=== PATIENT | female | born 2005 | race Caucasian/White ===

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

== ENCOUNTER 2024-04-06 13:49 | Emergency (ER) | payer OTHER, SELFPAY ==
[2024-04-06 14:05] VITALS: BP 130/78; PULSE 103; RESP 16; TEMP 37.1; O2SAT 98; BMI 20.4
[2024-04-06 14:07] VITALS: BP 130/78; PULSE 103; RESP 16; TEMP 37.1; O2SAT 98
--- NOTE | 2024-04-06 14:16 | ED_ITS ---
HPI - Female Genitourinary General Chief complaint: Urogenital-Female Stated complaint: vaginal discomfort Time Seen by Provider: 04/06/24 14:15 Source: patient Mode of arrival: ambulatory Limitations: no limitations History of Present Illness ED Provider: oneida STOREY Narrative: Patient is a 18-year-old female presenting to the emergency department with complaint of thick, white vaginal discharge since yesterday after having unprotected intercourse. Complains of external genetalia feeling swollen while urinating. She is not on control, unsure of last menstrual period. Denies fevers, abdominal pain, back pain, nausea or vomiting. MD elicited complaint: vaginal discharge Onset (ago): day(s) Location of symptoms: vaginal Vaginal discharge: white and thick/cheesy Vaginal bleeding: none Associated symptoms: denies other symptoms Treatment prior to arrival: none Sexual activity: Yes Possible : unsure if Related Data Previous Rx's ?Medication ?Instructions ?Recorded amoxicillin 875 mg tablet 875 mg PO BID Bacterial 12/10/21 pharyngitis 10 days #20 tabs cefdinir 300 mg capsule 300 mg PO BID 7 days #14 caps 02/27/23 doxycycline hyclate 100 mg tablet 100 mg PO BID 7 days #14 tabs 02/27/23 fluconazole 150 mg tablet 150 mg PO Q3D 2 doses #2 tabs 02/27/23 (Diflucan) metronidazole 500 mg tablet 500 mg PO BID 7 days #14 tabs 02/27/23 miconazole nitrate 4 % (200 mg)-2 1 supp vaginal BEDTIME 3 days #24 04/06/24 % (9 gram)vaginal,prefill grams appl,cream Allergies Allergy/AdvReac Type Severity Reaction Status Date / Time No Known Allergies Allergy Verified 04/06/24 14:06 [No Known Allergies*] Review of Systems Review of Systems: As per HPI. Yes all other systems are reviewed and are negative Constitutional: Constitutional: Reports as per HPI [facility] Past Medical History Medical History No known health problems Social History Social History Advance Directives: No Advance Directives Information Provided: No Do you have a plan to hurt others: No Plan Physical Exam Vital Signs: Vital Signs: Last Vital Signs Temp 98.8 F 04/06/24 16:26 Pulse 71 04/06/24 16:26 Resp 16 04/06/24 16:26 BP 109/62 04/06/24 16:26 Pulse Ox 100 04/06/24 16:26 O2 Del Method Room Air 04/06/24 16:26 BMI result Body Mass Index 20.4 Vital signs have been reviewed and appear to be correct. Blood pressure normal. Heart rate slightly tachycardic. Respiratory rate normal. Temperature normal. Oxygen saturation normal. Const: General: cooperative, healthy appearing and no acute distress Orientation/consciousness: oriented to person, oriented to place, oriented to time and patient oriented x3 Limitations: no limitations HEENT: Head: Yes normocephalic and Yes atraumatic Ears: external ears normal General nose exam: Normal external nose present Face and sinus: Yes face symmetric Mouth: oropharynx normal and moist mucous membranes Throat: Yes uvula midline Eyes: Pupils: Equal, round and reactive pupils present Neck: Neck: Yes normal visual inspection and Yes supple Resp: Effort & Inspection: normal respiratory effort and able to speak in complete sentences Auscultation: clear to auscultation bilaterally Cardio: Rate: regular rate Rhythm: regular rhythm Heart sounds: S1 normal heart sound present and S2 normal heart sound present GI: Palpation (GI): Soft to palpation and nontender Auscultation: normoactive bowel sounds : Other: Pelvic exam chaperoned by ELIZABETH Miller and ELIZABETH Mas. General: Yes no CVA tenderness External Female Exam: normal external appearance Speculum Exam - Vagina: normal appearance of the vagina and abnormal vaginal discharge white (thick) Speculum Exam - Cervix: normal appearance of the cervix and Cervical os closed Back/Spine/Pelvis: Back: no CVA tenderness Skin: General skin exam: elasticity normal and turgor normal Neuro: General: oriented to person, oriented to place, oriented to time, patient oriented x3, moves all extremities, no focal motor deficits and CN's II- XI intact bilaterally Cranial nerves: Yes Equal, round and reactive pupils present Cognition (Neuro): normal cognition Extrem: General: Yes full ROM, Yes no pedal edema and Yes no calf tenderness Psych: Mental Status: mental status grossly normal Affect: normal affect Thought process: Normal thought process present Medical Decision Making Medical Decision Making MDM Narrative: Patient is a 18-year-old female presenting to the emergency department with complaint of thick, white vaginal discharge since yesterday after having unprotected intercourse. On exam patient is awake, A+Ox3, VS WNL, afebrile, normal neurological exam without focal deficits, physical exam findings as above. Given reported symptoms and physical exam findings, initial differential includes STI, UTI, . Trichomonas negative, duarte positive 3+. Will treat for vulvovaginal candidiasis. CT NG, HIV, RPR pending, patient will be contacte with any positive results, will defer treatment at this time as symptoms most consistent with vulvovaginal candidiasis. Urinalysis notable for 1+ leukocytes, no bacteria, 11-20 epithelials likely contamination. Patient updated on results and questions answered. Discussed with patient that she will be contacted with any positive results. Return precautions discussed at bedside. Patient verbalized understanding of and agreement with plan. Differential Diagnosis Differential Diagnoses: The differential diagnosis associated with the presentation includes As per MDM. Lab Data [facility] Lab Attestation statement: I reviewed the patient's lab results. As per MDM. Labs: Lab Results 04/06/24 04/06/24 Range/Units 14:42 15:05 Urine Color Yellow Urine Appearance Cloudy Urine pH 5.5 (5.0-9.0) Ur Specific Pillager >= 1.030 H (1.005-1.025) Urine Protein 30 (1+) H (Neg-Trace) mg/dL Urine Glucose (UA) Negative (Negative) mg/dL Urine Ketones Trace (Negative) mg/dL Urine Blood Negative (Negative) Urine Nitrite Negative (Negative) Ur Leukocyte Esterase Small (1+) H (Negative) Urine RBC 0-2 (0-2) /HPF Urine WBC 6-10 H (0-5) /HPF Ur Squamous Epith Cells 11-20 (0-2) /HPF Urine Bacteria None Seen (None Seen) Hyaline Casts 3-5 (0-2) /LPF Urine Test NEGATIVE (NEGATIVE) T. vaginalis (PCR) NOT DETECTED (Not Detect) Bact Vaginosis (PCR) NEGATIVE (Negative) C. krusei/glabrata (PCR) NOT DETECTED (Not Detect) Duarte group (PCR) DETECTED A (Not Detect) External Record Review External record reviewed: Inpatient record, Office record and Outpatient record Prescription Management I considered prescription management with: Other Discharge Plan Discharge Clinical Impression: Vulvovaginal candidiasis Patient Disposition: Home, Self-Care Instructions: Yeast Infection (ED) Additional Instructions: You were evaluated in the emergency department today for abnormal vaginal discharge. Your tests were positive for vulvovaginal candidiasis, also known as yeast infection. You are being treated with medication, please take this as prescribed. Several other tests are pending and you will be contacted with any positive results. Follow-up with your electronics inspector or primary care provider. Return to the emergency department if you develop fever, abdominal pain, persistent vo miting, or other concerning symptoms. Prescriptions: New miconazole nitrate 4 % (200 mg)- 2 % (9 gram) comb pack,prefill appl, cream 1 supp vaginal BEDTIME 3 Days Qty: 24 0RF No Action amoxicillin 875 mg tablet 875 mg PO BID 10 Days Qty: 20 0RF metronidazole 500 mg tablet 500 mg PO BID 7 Days Qty: 14 0RF cefdinir 300 mg capsule 300 mg PO BID 7 Days Qty: 14 0RF doxycycline hyclate 100 mg tablet 100 mg PO BID 7 Days Qty: 14 0RF fluconazole [Diflucan] 150 mg tablet 150 mg PO Q3D Qty: 2 0RF Print Language: Liberian
[2024-04-06 15:15] LABS: Appearance Urine Cloudy; Color Urine Yellow; Glucose Urine UA Negative (Negative); Leukocyte Esterase Urine Small (1+) (Negative); Nitrite Urine Negative (Negative); PH 5.5 (5.0-9.0); Specific Gravity - Urine >= 1.030 (1.005-1.025); UMIC TRIGGER UACC YES; Urine Blood Negative (Negative); Urine Ketones Trace mg/dL (Negative); Urine Protein 30 (1+) mg/dL (Neg-Trace)
[2024-04-06 15:17] LABS: UPreg QC Valid YES; Urine Pregnancy NEGATIVE (NEGATIVE)
[2024-04-06 15:30] LABS: Bacteria Urine None Seen (None Seen); RBC Urine 0-2 /HPF (0-2); UACC Culture Trigger YES
[2024-04-06 16:26] VITALS: BP 109/62; PULSE 71; RESP 16; TEMP 37.1; O2SAT 100
[2024-04-06 16:30] LABS: Bacterial Vaginosis PCR NEGATIVE (Negative); Candida Group PCR DETECTED (Not Detect); Candida glab krusei PCR NOT DETECTED (Not Detect); Trichomonas vaginalis PCR NOT DETECTED (Not Detect)
[2024-04-06 16:47] VITALS: BP 109/62; PULSE 71; RESP 16; TEMP 37.1; O2SAT 100
[2024-04-06 17:01] LABS: CT PCR NOT DETECTED (Not Detect.); NG PCR NOT DETECTED (Not Detect.)
[2024-04-07 08:11] LABS: HIV AB/AG Nonreactive (Nonreactive); HIV Num 1 0.05 S/CO (0.00-0.99)
[2024-04-07 08:15] LABS: Syphilis Screen Nonreactive (Nonreactive)
== END 2024-04-06 16:49 | disposition home or self-care (01) ==
PROVIDERS: Registered Nurse Emergency; Emergency Provider Emergency Medicine
DX: B37.31 Acute candidiasis of vulva and vagina (principal); N89.8 Other specified noninflammatory disorders of vagina
CPT/HCPCS: 0352U; 36415; 81001; 81025; 86780; 87086; 87389; 87491; 87591; 99283; 99284

== ENCOUNTER 2024-05-08 11:33 | Emergency (ER) | payer OTHER, SELFPAY ==
[2024-05-08 11:42] VITALS: BP 106/62; PULSE 74; RESP 14; TEMP 36.8; O2SAT 100; BMI 22.2
--- NOTE | 2024-05-08 11:42 | ED.GENADULT ---
HPI - General Adult General Chief complaint: Skin/Abscess/Foreign Body Stated complaint: Cyst Time Seen by Provider: 05/08/24 13:21 Related Data Previous Rx's ?Medication ?Instructions ?Recorded amoxicillin 875 mg tablet 875 mg PO BID Bacterial 12/10/21 pharyngitis 10 days #20 tabs cefdinir 300 mg capsule 300 mg PO BID 7 days #14 caps 02/27/23 doxycycline hyclate 100 mg tablet 100 mg PO BID 7 days #14 tabs 02/27/23 fluconazole 150 mg tablet 150 mg PO Q3D 2 doses #2 tabs 02/27/23 (Diflucan) metronidazole 500 mg tablet 500 mg PO BID 7 days #14 tabs 02/27/23 miconazole nitrate 4 % (200 mg)-2 1 supp vaginal BEDTIME 3 days #24 04/06/24 % (9 gram)vaginal,prefill grams appl,cream cephalexin 500 mg capsule 500 mg PO QID 7 days #28 caps 05/08/24 doxycycline hyclate 100 mg capsule 100 mg PO BID 7 days #14 caps 05/08/24 Allergies Allergy/AdvReac Type Severity Reaction Status Date / Time No Known Allergies Allergy Verified 05/08/24 11:43 [No Known Allergies*] ON LICENSE OF [facility] Past Medical History Medical History No known health problems Social History Social History Advance Directives: No Advance Directives Information Provided: Yes Physical Exam ED Vital Signs: Vital Signs - 24 hr 05/08/24 11:42 05/08/24 14:38 05/08/24 14:39 Temperature 98.2 F 98.9 F 98.9 F Pulse Rate 74 85 85 Respiratory Rate 14 20 20 Blood Pressure 106/62 115/62 115/62 Pulse Oximetry 100 98 98 Oxygen Delivery Method Room Air Room Air Room Air BMI result Body Mass Index 22.2 Course Course Course Narrative: RME performed by Angella Saenz PA-C. Patient is a 18 year old assigned female at presenting to the emergency department with a vaginal abscess. Patient states that yesterday she noticed a hard swollen area on her genitals. Detailed physical exam and review of systems are deferred to the orthotic/prosthetic clinician. Patient placed back in the waiting room pending room availability. Patient seen and dispositioned by Dr. Cortes. Please refer to his note from 05/08/2024 Medical Decision Making Lab Data Labs: Lab Results 05/08/24 Range/Units 14:13 T.pallidum Ab (EIA) Nonreactive (Nonreactive) Chlam trachomat DNA PCR NOT DETECTED (Not Detect.) N.gonorrhoeae DNA (PCR) NOT DETECTED (Not Detect.) T. vaginalis (PCR) NOT DETECTED (Not Detect) Bact Vaginosis (PCR) POSITIVE A (Negative) C. krusei/glabrata (PCR) NOT DETECTED (Not Detect) Felicity group (PCR) NOT DETECTED (Not Detect) Discharge Plan Discharge Clinical Impression: Carbuncle, Abscess of skin or subcutaneous tissue Patient Disposition: Home, Self-Care Instructions: Furunculosis and Carbunculosis (ED), Abscess (ED) Additional Instructions: Presently no indication for incision and drainage. You will be called with results. Recommend warm compress 4 times a day for 15 minutes on area. Return to the ED immediately for any fever, chills, increased swelling, worsening pain, redness, pus discharge, foul odor, or any other concerning symptoms. Recommend follow-up with primary care provider Prescriptions: New cephalexin 500 mg capsule 500 mg PO QID 7 Days Qty: 28 0RF doxycycline hyclate 100 mg capsule 100 mg PO BID 7 Days Qty: 14 0RF No Action amoxicillin 875 mg tablet 875 mg PO BID 10 Days Qty: 20 0RF metronidazole 500 mg tablet 500 mg PO BID 7 Days Qty: 14 0RF cefdinir 300 mg capsule 300 mg PO BID 7 Days Qty: 14 0RF doxycycline hyclate 100 mg tablet 100 mg PO BID 7 Days Qty: 14 0RF fluconazole [Diflucan] 150 mg tablet 150 mg PO Q3D Qty: 2 0RF miconazole nitrate 4 % (200 mg)- 2 % (9 gram) comb pack,prefill appl, cream 1 supp vaginal BEDTIME 3 Days Qty: 24 0RF Stand Alone Forms: Work/School Release Interventions: ED Discharge Assessment Last Done: 05/08/24 14:39 Discharge Date/Time: 05/08/24 14:39 Print Language: St Helenian
--- NOTE | 2024-05-08 13:31 | ED.GENADULT ---
HPI - General Adult General Chief complaint: Skin/Abscess/Foreign Body Stated complaint: Cyst Time Seen by Provider: 05/08/24 13:21 Source: patient Mode of arrival: ambulatory Limitations: no limitations History of Present Illness ED Provider: Sarthak RIVERA HPI narrative: 18-year-old female history of STI in the past presents to ED for left vaginal labial bump that is tender has been present since yesterday. Patient denies any fever or chills. Related Data Previous Rx's ?Medication ?Instructions ?Recorded amoxicillin 875 mg tablet 875 mg PO BID Bacterial 12/10/21 pharyngitis 10 days #20 tabs cefdinir 300 mg capsule 300 mg PO BID 7 days #14 caps 02/27/23 doxycycline hyclate 100 mg tablet 100 mg PO BID 7 days #14 tabs 02/27/23 fluconazole 150 mg tablet 150 mg PO Q3D 2 doses #2 tabs 02/27/23 (Diflucan) metronidazole 500 mg tablet 500 mg PO BID 7 days #14 tabs 02/27/23 miconazole nitrate 4 % (200 mg)-2 1 supp vaginal BEDTIME 3 days #24 04/06/24 % (9 gram)vaginal,prefill grams appl,cream cephalexin 500 mg capsule 500 mg PO QID 7 days #28 caps 05/08/24 doxycycline hyclate 100 mg capsule 100 mg PO BID 7 days #14 caps 05/08/24 Allergies Allergy/AdvReac Type Severity Reaction Status Date / Time No Known Allergies Allergy Verified 05/08/24 11:43 [No Known Allergies*] Review of Systems Review of Systems: left labia lubmp Yes all other systems are reviewed and are negative [facility] Past Medical History Medical History No known health problems Social History Social History Advance Directives: No Advance Directives Information Provided: Yes Physical Exam ED Vital Signs: Vital Signs - 24 hr 05/08/24 11:42 05/08/24 14:38 05/08/24 14:39 Temperature 98.2 F 98.9 F 98.9 F Pulse Rate 74 85 85 Respiratory Rate 14 20 20 Blood Pressure 106/62 115/62 115/62 Pulse Oximetry 100 98 98 Oxygen Delivery Method Room Air Room Air Room Air BMI result Body Mass Index 22.2 Const General: cooperative, healthy appearing, comfortable, no acute distress, well developed, alert, awake and Physically active Orientation/consciousness: patient oriented x3 [facility] Head: Yes normal to inspection, Yes No palpable skull fracture present, Yes normocephalic, Yes atraumatic and No abrasion Eyes General: appearance normal, both eyes and all related structures Neck Neck: Yes normal visual inspection, Yes full ROM, Yes no lymphadenopathy, Yes no meningeal signs, Yes trachea midline, Yes supple, No anterior neck swelling and No tender Chest Chest palpation & inspection: normal inspection of the chest and normal palpation of entire chest wall Resp Effort & Inspection: normal respiratory effort and able to speak in complete sentences Auscultation: clear to auscultation bilaterally Cardio Jugular venous distension: no JVD Heart sounds: S1 normal heart sound present and S2 normal heart sound present GI Inspection: Yes normal to inspection Palpation (GI): Soft to palpation, not firm, nontender, no guarding and not rigid General: No CVA tenderness and Yes no CVA tenderness Female genitals images: 1. Non erythematous tender mass/carbuncle/folliculitis. Nonfluctuant on palpation. Negative for vesicular lesions. Negative for any vaginal discharge. Negative for swelling. Back/Spine/Pelvis Back: no CVA tenderness, No CVA tenderness and No back tenderness Skin General skin exam: no rashes or lesions noted, elasticity normal and turgor normal Neuro General: patient oriented x3, gait normal, tone normal, moves all extremities, Normal light touch and pain sensation, no meningeal signs, no focal motor deficits, CN's II-XI intact bilaterally and normal sensation to monofilament Extrem General: Yes normal to inspection, Yes full ROM and Yes capillary refill normal Psych Appearance: grossly normal, well kempt and not disheveled Medical Decision Making Medical Decision Making MDM Narrative: 18-year-old female presents to ED for left labia painful lump. Patient has pmh of STI in the past. Vaginal lesion does not appear to be herpes but will send herpes viral swab. We will order RPR test for syphilis. Patient says she prefers to self swab for chlamydia gonorrhea trich and vaginal vaginosis. Patient explained worrisome signs and informed to return to the ED immediately. Not suspecting Bartholin cyst,, herpes, HPV warts, tubo-ovarian torsion, tubo-ovarian abscess, for PID Differential Diagnosis Differential Diagnoses: The differential diagnosis associated with the presentation includes (Abscess, carbuncle, folliculitis) Admission/Observation Consideration of admission/observation: Escalation of care including admission/observation considered Lab Data Labs: Lab Results 05/08/24 Range/Units 14:13 Chlam trachomat DNA PCR NOT DETECTED (Not Detect.) N.gonorrhoeae DNA (PCR) NOT DETECTED (Not Detect.) T. vaginalis (PCR) NOT DETECTED (Not Detect) Bact Vaginosis (PCR) POSITIVE A (Negative) C. krusei/glabrata (PCR) NOT DETECTED (Not Detect) Felicity group (PCR) NOT DETECTED (Not Detect) Independent Historian Clinical information obtained from an independent historian. History obtained from or confirmed by: Other (Patient) External Record Review External record reviewed: Other (Prior visits) Prescription Management I considered prescription management with: Other (Keflex) Discharge Plan Discharge Clinical Impression: Carbuncle, Abscess of skin or subcutaneous tissue Patient Disposition: Home, Self-Care Instructions: Furunculosis and Carbunculosis (ED), Abscess (ED) Additional Instructions: Presently no indication for incision and drainage. You will be called with results. Recommend warm compress 4 times a day for 15 minutes on area. Return to the ED immediately for any fever, chills, increased swelling, worsening pain, redness, pus discharge, foul odor, or any other concerning symptoms. Recommend follow-up with primary care provider Prescriptions: New cephalexin 500 mg capsule 500 mg PO QID 7 Days Qty: 28 0RF doxycycline hyclate 100 mg capsule 100 mg PO BID 7 Days Qty: 14 0RF No Action amoxicillin 875 mg tablet 875 mg PO BID 10 Days Qty: 20 0RF metronidazole 500 mg tablet 500 mg PO BID 7 Days Qty: 14 0RF cefdinir 300 mg capsule 300 mg PO BID 7 Days Qty: 14 0RF doxycycline hyclate 100 mg tablet 100 mg PO BID 7 Days Qty: 14 0RF fluconazole [Diflucan] 150 mg tablet 150 mg PO Q3D Qty: 2 0RF miconazole nitrate 4 % (200 mg)- 2 % (9 gram) comb pack,prefill appl, cream 1 supp vaginal BEDTIME 3 Days Qty: 24 0RF Stand Alone Forms: Work/School Release Interventions: ED Discharge Assessment Last Done: 05/08/24 14:39 Discharge Date/Time: 05/08/24 14:39 Print Language: Swedish
[2024-05-08 14:38] VITALS: BP 115/62; PULSE 85; RESP 20; TEMP 37.2; O2SAT 98
[2024-05-08 14:39] VITALS: BP 115/62; PULSE 85; RESP 20; TEMP 37.2; O2SAT 98
[2024-05-08 15:55] LABS: Bacterial Vaginosis PCR POSITIVE (Negative); Candida Group PCR NOT DETECTED (Not Detect); Candida glab krusei PCR NOT DETECTED (Not Detect); Trichomonas vaginalis PCR NOT DETECTED (Not Detect)
[2024-05-08 16:25] LABS: CT PCR NOT DETECTED (Not Detect.); NG PCR NOT DETECTED (Not Detect.)
[2024-05-09 04:10] LABS: Syphilis Screen Nonreactive (Nonreactive)
== END 2024-05-08 14:39 | disposition home or self-care (01) ==
PROVIDERS: Physician Assistant; Emergency Provider Emergency Medicine
DX: N76.0 Acute vaginitis (principal); N76.4 Abscess of vulva; B96.89 Other specified bacterial agents as the cause of diseases classified elsewhere
CPT/HCPCS: 0352U; 36415; 86780; 87255; 87491; 87591; 99283; 99284

== ENCOUNTER 2024-05-25 09:38 | Emergency (ER) | payer OTHER, SELFPAY ==
[2024-05-25 10:06] VITALS: BP 102/48; PULSE 75; RESP 14; TEMP 36.6; O2SAT 99; BMI 21.2
--- NOTE | 2024-05-25 11:48 | ED.FEMALEGU ---
HPI - Female Genitourinary General Chief complaint: Urogenital-Female Stated complaint: Vaginal irritation Time Seen by Provider: 05/25/24 11:37 Source: patient Mode of arrival: ambulatory Limitations: no limitations History of Present Illness ED Provider: Sarthak Lomax HPI Narrative: 18 yold female recently diagnosed as BV presents to the ED for worsening vaginal itchiness and white discharge. Patient was prescribed metronidazole for her BV but she was overwhelm with the amount of pills so she only took three pills and than threw the rest away and did not finish treatment. Patient states no recent sexual activity and denies any vaginal lesions. Related Data Previous Rx's ?Medication ?Instructions ?Recorded amoxicillin 875 mg tablet 875 mg PO BID Bacterial 12/10/21 pharyngitis 10 days #20 tabs cefdinir 300 mg capsule 300 mg PO BID 7 days #14 caps 02/27/23 doxycycline hyclate 100 mg tablet 100 mg PO BID 7 days #14 tabs 02/27/23 fluconazole 150 mg tablet 150 mg PO Q3D 2 doses #2 tabs 02/27/23 (Diflucan) metronidazole 500 mg tablet 500 mg PO BID 7 days #14 tabs 02/27/23 miconazole nitrate 4 % (200 mg)-2 1 supp vaginal BEDTIME 3 days #24 04/06/24 % (9 gram)vaginal,prefill grams appl,cream cephalexin 500 mg capsule 500 mg PO QID 7 days #28 caps 05/08/24 doxycycline hyclate 100 mg capsule 100 mg PO BID 7 days #14 caps 05/08/24 metronidazole 500 mg tablet 500 mg PO BID 7 days #14 tabs 05/10/24 levofloxacin 250 mg tablet 250 mg PO DAILY 3 days #3 tabs 05/25/24 metronidazole 500 mg tablet 500 mg PO Q12H 7 days #14 tabs 05/25/24 Allergies Allergy/AdvReac Type Severity Reaction Status Date / Time No Known Allergies Allergy Verified 05/25/24 10:09 [No Known Allergies*] Review of Systems Review of Systems: Vaginal itching white vaginal discharge Yes all other systems are reviewed and are negative PMFSH Past Medical History Medical History No known health problems Social History Social History Advance Directives: No Advance Directives Information Provided: Yes Physical Exam Vital Signs: Vital Signs: Last Vital Signs Temp 97.9 F 05/25/24 13:51 Pulse 75 05/25/24 13:51 Resp 14 05/25/24 13:51 BP 102/48 L 05/25/24 13:51 Pulse Ox 99 05/25/24 13:51 O2 Del Method Room Air 05/25/24 13:51 BMI result Body Mass Index 21.2 Const: General: cooperative, healthy appearing, comfortable, no acute distress, well developed, alert, awake and Physically active HEENT: Head: Yes normal to inspection, Yes No palpable skull fracture present, Yes normocephalic, Yes atraumatic and No abrasion Eyes: General: appearance normal, both eyes and all related structures Neck: Neck: Yes normal visual inspection, Yes full ROM, Yes no lymphadenopathy, Yes no meningeal signs, Yes trachea midline, Yes supple, No anterior neck swelling and No tender Chest: Chest palpation & inspection: normal inspection of the chest and normal palpation of entire chest wall Resp: Effort & Inspection: normal respiratory effort and able to speak in complete sentences Cardio: Jugular venous distension: no JVD Heart sounds: S1 normal heart sound present and S2 normal heart sound present GI: Inspection: Yes normal to inspection Palpation (GI): Soft to palpation, not firm, nontender, no guarding and not rigid : Other: deferred by patient General: No CVA tenderness and Yes no CVA tenderness Back/Spine/Pelvis: Back: no CVA tenderness, No CVA tenderness and No back tenderness Skin: General skin exam: no rashes or lesions noted, elasticity normal and turgor normal Neuro: General: gait normal, tone normal, moves all extremities, Normal light touch and pain sensation, no meningeal signs, no focal motor deficits, CN's II-XI intact bilaterally and normal sensation to monofilament Extrem: General: Yes normal to inspection, Yes full ROM and Yes capillary refill normal Psych: Appearance: grossly normal, well kempt and not disheveled Medications Administered Discontinued Medications Generic Name Dose Route Start Last Admin Trade Name Freq PRN Reason Stop Dose Admin Fluconazole 150 mg 05/25/24 13:23 05/25/24 13:36 Fluconazole 150 Mg Tablet PO 05/25/24 13:24 150 mg ONCE ONE Administration Medical Decision Making Medical Decision Making MDM Narrative: 18-year-old female presents to ED for worsening vaginal itching vaginal white discharge. Patient did not complete her treatment for BV and threw away her metronidazole prescription. Patient deferred pelvic exam. Patient does not want retesting of chlamydia gonorrhea. Patient will wait for urine test be prescribed with new metronidazole prescription. Patient well-appearing. 1:18pm: UA shows shows yeast. Will give 1 dose Diflucan. Will discharge with metronidazole for untreated BV. will discharge with antiobics for UTI. Not suspecting pyelonephritis, urosepsis, ovarian torsion, or ovarian abscess. Patient refused pelvic exam and refused repeat swabs. Patient explained worrisome signs and informed to return to the ED immediately. Due to patient's stay not able to tolerate multiple different type antibiotics at once will give Levaquin to treat UTI for 3 days. Patient explained risk of tendon rupture with Levaquin. Differential Diagnosis Differential Diagnoses: The differential diagnosis associated with the presentation includes (yeast, BV, UTI, ) Admission/Observation Consideration of admission/observation: Escalation of care including admission/observation considered Lab Data MDM Lab Attestation statement: I reviewed the patient's lab results. Labs: Lab Results 05/25/24 05/25/24 Range/Units 10:33 12:28 Urine Color Yellow Urine Appearance Cloudy Urine pH 8.5 (5.0-9.0) Ur Specific [place] 1.015 (1.005-1.025) Urine Protein Negative (Neg-Trace) mg/dL Urine Glucose (UA) Negative (Negative) mg/dL Urine Ketones Negative (Negative) mg/dL Urine Blood Trace H (Negative) Urine Nitrite Negative (Negative) Ur Leukocyte Esterase Large (3+) H (Negative) Urine RBC 0-2 (0-2) /HPF Urine WBC >50 H (0-5) /HPF Ur Squamous Epith Cells >20 (0-2) /HPF Urine Bacteria 1+ (None Seen) Hyaline Casts 3-5 (0-2) /LPF Urine Yeast Present Urine Test NEGATIVE (NEGATIVE) Chlam trachomat DNA PCR NOT DETECTED (Not Detect.) N.gonorrhoeae DNA (PCR) NOT DETECTED (Not Detect.) Independent Historian Clinical information obtained from an independent historian. History obtained from or confirmed by: Other (patient) External Record Review External record reviewed: Other (prior visits) Prescription Management I considered prescription management with: Antibiotic Discharge Plan Discharge Clinical Impression: Urinary tract infection, Bacterial vaginosis, Yeast infection Patient Disposition: Home, Self-Care Instructions: Bacterial Vaginosis (ED), Urinary Tract Infection in Women (ED), Yeast Infection (ED) Additional Instructions: You will be given another prescription to treat bacterial vaginosis. Must complete treatment for symptoms to resolve. Urine also showed yeast so you were given 1 dose of Diflucan in the ED. UA shows possible UTI so you will be discharged with Levaquin which is antibiotic for 3 days. Be aware of possible tendon rupture. No athletic activities while taking this medication. Recommend follow-up with primary care provider. Return to the ED immediately for any abdominal pain, worsening vaginal discharge, vaginal lesions, fever, chills, nausea, vomitting, flank pain, or any other concerning symptoms. Prescriptions: New metronidazole 500 mg tablet 500 mg PO Q12H 7 Days Qty: 14 0RF levofloxacin 250 mg tablet 250 mg PO DAILY 3 Days Qty: 3 0RF No Action amoxicillin 875 mg tablet 875 mg PO BID 10 Days Qty: 20 0RF metronidazole 500 mg tablet 500 mg PO BID 7 Days Qty: 14 0RF cefdinir 300 mg capsule 300 mg PO BID 7 Days Qty: 14 0RF doxycycline hyclate 100 mg tablet 100 mg PO BID 7 Days Qty: 14 0RF fluconazole [Diflucan] 150 mg tablet 150 mg PO Q3D Qty: 2 0RF miconazole nitrate 4 % (200 mg)- 2 % (9 gram) comb pack,prefill appl, cream 1 supp vaginal BEDTIME 3 Days Qty: 24 0RF cephalexin 500 mg capsule 500 mg PO QID 7 Days Qty: 28 0RF doxycycline hyclate 100 mg capsule 100 mg PO BID 7 Days Qty: 14 0RF metronidazole 500 mg tablet 500 mg PO BID 7 Days Qty: 14 0RF Stand Alone Forms: Work/School Release Interventions: ED Discharge Assessment Last Done: 05/25/24 13:51 Discharge Date/Time: 05/25/24 13:52 Print Language: Danish
[2024-05-25 12:21] LABS: CT PCR NOT DETECTED (Not Detect.); NG PCR NOT DETECTED (Not Detect.)
[2024-05-25 12:37] LABS: Appearance Urine Cloudy; Color Urine Yellow; Glucose Urine UA Negative (Negative); Leukocyte Esterase Urine Large (3+) (Negative); Nitrite Urine Negative (Negative); PH 8.5 (5.0-9.0); Specific Gravity - Urine 1.015 (1.005-1.025); UMIC TRIGGER UACC YES; Urine Blood Trace (Negative); Urine Ketones Negative (Negative); Urine Protein Negative (Neg-Trace)
[2024-05-25 12:39] LABS: UPreg QC Valid YES; Urine Pregnancy NEGATIVE (NEGATIVE)
[2024-05-25 12:49] LABS: Bacteria Urine 1+ (None Seen); RBC Urine 0-2 /HPF (0-2); Squamous Epithelial Cell Urine >20 /HPF (0-2); UACC Culture Trigger YES; WBC Urine >50 /HPF (0-5)
[2024-05-25] MEDS: Fluconazole 150 MG TABLET PO (13:36)
[2024-05-25 13:51] VITALS: BP 102/48; PULSE 75; RESP 14; TEMP 36.6; O2SAT 99
== END 2024-05-25 13:52 | disposition home or self-care (01) ==
PROVIDERS: Emergency Provider Emergency Medicine
DX: N39.0 Urinary tract infection, site not specified (principal); N76.0 Acute vaginitis; B37.31 Acute candidiasis of vulva and vagina
CPT/HCPCS: 81001; 81025; 87086; 87491; 87591; 99282; 99283

== ENCOUNTER 2025-01-26 16:19 | Emergency (ER) | payer OTHER, SELFPAY ==
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
[2025-01-26 16:30] VITALS: BP 124/66; PULSE 107; O2SAT 99
[2025-01-26 16:33] VITALS: BP 119/72; PULSE 88; RESP 18; TEMP 36.9; O2SAT 100
[2025-01-26 16:36] VITALS: BP 119/72; PULSE 82; RESP 16; TEMP 36.8; O2SAT 100; BMI 19.1
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
--- NOTE | 2025-01-26 16:54 | PC.NURSE ---
Observed patient removing C-collar. Provider at bedside educating patient on risk of removing C-collar prematurely.
--- NOTE | 2025-01-26 18:11 | PC.NURSE ---
Pt. has yet to go to CT for head/neck, per radiology she should be scanned in the next 20 minutes. car body mechanic Bella / CHATO Khan aware of delay
[2025-01-26] MEDS: Acetaminophen 325 MG TABLET 650 MG PO (18:21)
--- NOTE | 2025-01-26 18:28 | PC.NURSE ---
pt taken to CT scan
--- NOTE | 2025-01-26 18:35 | PC.NURSE ---
pt returned from CT c-collar still in place
[2025-01-26 18:37] VITALS: BP 112/74; PULSE 63; RESP 18; O2SAT 100
--- OUTSIDE RECORDS SUMMARY | 2025-01-26 19:53 | XMS_ITS | Encounter Summary ---
Author Organization [facility] Address [address] [place] [address] Care Team Providers Care Hand Polisher Name Role Phone Marbin Toussaitn MD Primary Care Provider [phone] Reason for Visit * Reason Onset Date Comments Letter for School/Work 12/22/2024 Encounter Details Date Type Department Care Team ([facility] Contact Info) Description 12/22/2024 Telephone Adult Medicine [facility] [address] [place] [address] Marbin Toussaint MD [address] [place], [place] Letter for School/Work Social History Tobacco Use Types Packs/Day Years Used Date Smoking Tobacco: Never Smokeless Tobacco: Never Alcohol Use Standard Drinks/Week Comments Not Asked 0 (1 standard drink = 0.6 oz pur e alcohol) Comments Unknown Sex and Gender Information Value Date Recorded Sex Assigned at Not on file Legal Sex Female 6:50 AM EST Gender Identity Not on file Sexual Orientation Not on file documented as of this encounter Progress Notes * Ismael Fortune MA - 12/23/2024 8:46 AM EDT Pt needs an appointment . Left message for pt to return call. * Hernandez Andino - 12/22/2024 12:55 PM EDT Letter Request Call: Who is requesting the letter?: The patient Reason for letter: The patient is requesting a letter to state that she is physical fit to work. Specific notations needed in body of letter: Date needed for completion: TAI When completed: Will pickle cutter-call when completed: Tel # There is no home phone number on file. Possibly need a physical scheduled with and provider due to employment purposes. documented in this encounter Plan of Treatment Not on file documented as of this encounter Visit Diagnoses Not on filedocumented in this encounter Care Teams Hand Polisher Relationship Specialty Start Date End Date Marbin Toussaint MD [address] [place] [address] PCP - General Internal Medicine 11/30/24 documented as of this encounter
[2025-01-26 20:25] VITALS: BP 101/60; PULSE 73; RESP 16; O2SAT 98
--- NOTE | 2025-01-26 20:26 | PC.NURSE ---
Pt getting increasingly agitated, threating I should just go to [facility], ya'll ain't doing nothing here for me. Explained to patient we are still awaiting head CT results. Provider Dario made aware by Fiorella BARCLAY & T/Naheed. Messaged Dario about patient's back pain, awaiting additional orders.
[2025-01-26] MEDS: Ibuprofen 400 MG TABLET PO (20:42)
[2025-01-26 20:43] VITALS: BP 101/60; PULSE 73; RESP 16; TEMP 36.9; O2SAT 98
== END 2025-01-26 20:44 | disposition home or self-care (01) ==
PROVIDERS: Emergency Provider Internal Medicine
DX: S13.4XXA Sprain of ligaments of cervical spine, initial encounter (principal); M54.2 Cervicalgia; R51.9 Headache, unspecified; V43.52XA Car driver injured in collision with other type car in traffic accident, initial encounter; Y93.9 Activity, unspecified; Y92.410 Unspecified street and highway as the place of occurrence of the external cause; Y99.8 Other external cause status
CPT/HCPCS: 70450; 72125; 99284

== ENCOUNTER → 2025-01-26 16:49 | Outpatient (BNV) | payer MEDICAID, SELFPAY | PROVIDERS: Emergency Provider Internal Medicine; Visit Provider Specialist | DX: G89.11 Acute pain due to trauma (principal); G44.309 Post-traumatic headache, unspecified, not intractable | CPT/HCPCS: 70450; 72125 ==

== ENCOUNTER 2025-02-01 10:14 | Emergency (ER) | payer OTHER, SELFPAY ==
[2025-02-01 10:20] VITALS: BP 109/64; PULSE 70; RESP 16; TEMP 36.5; O2SAT 99; BMI 17.7
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
--- OUTSIDE RECORDS SUMMARY | 2025-02-01 12:01 | XMS_ITS | Clinical Summary ---
Author Organization [facility] it Address [address] [place] [address] Care Team Providers Care Hr Receptionist Name Role Phone Marbin Toussaint MD Primary Care Provider Allergies No known active allergies Active Problems Problem Noted Date Diagnosed Date Chlamydia infection 03/19/2022 Overview (08/07/2024): 03/2022: treated with azithromycin Depression 01/25/2021 Overview (08/07/2024): 01/2021: PHQ9 -10. 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 Wants to start medications but needed to go to work, will f/u for telehealth Adolescent idiopathic scoliosis 06/02/2018 Overview (08/07/2024): Significant per xray; referred to Arturo; dad aware (dad has legal custody) 06/20:seen by arturo; was eligible per xray for bracing but skelatally matured;, will monitor and see again in a yr; no restrictions Behavior causing concern in biological child Overview (08/07/2024): Needs eval for adhd; was given [facility] 06/02/18 for completion and then schedule with pcp; Substance abuse (CMS/HCC V24, CMS/HCC V28) 11/06 Overview (08/07/2024): Crisis intervention 11/18. Agitation, using marijuana and etoh. Referred for f/u to [facility]. 01/2021: denies further use Encounters Date Type Department Care Team Description 12/22/2024 Telephone Adult Medicine [address] [address] Marbin Toussaint MD Letter for School/Work from Last 3 Months Immunizations Name Administration Dates Next Due DTaP (Infanrix) 6wks to less than 7yo 11/22/2009 ,05/14/2007 [id number] (Pentacel) 2mo to less than 5yo 04/20/2006,10/14/2005,05/02/2005,02/28 [id number] (Pediarix) 6 w ks to less than 7yo 10/14/2005,05/02/2005,02/28/2005 HPV 9-valent (Gardisil) 9yo to less than 46yo 06/02/2018,11/24/2016 IPV Inactivated polio (Ipol) 6wks and older 11/22/2009 Influenza trivalent, 0.5mL, preservative free (Fluarix; FluLaval; Fluzone) ages 6mo and older (Afluria) 3 years and older 06/02/2018 Influenza trivalent, with pr eservative (Fluzone; Afluria) 6mo and older 05/14/2007 MMR, measles mumps and rubel la Live (Priorix; M-M-R II) 12mo and older 12/22/2011,01/29/2006 Meningococcal MCV4P 03/18/2022,11/24/2016 Pneumococcal Conjugate Vacci ne, 7 Valent 04/20/2006,10/14/2005,05/02/2005,02/28 Pneumococcal conjugate 13 va lent (Prevnar 13, PCV13) 2mo and older 11/22/2009 Tdap Tetanus diptheria acell ular pertussis (Boostrix; Adacel) 7yo and older 11/24/2016 Varicella live (Varivax) 12m o and older 12/22/2011,01/29/2006 Surgical History Surgery Date Site/Laterality Comments APPENDECTOMY 02/06 PROCEDURE: HISTORICAL APPENDECTOMY Medical History Medical History Date Comments Otitis media, acute DX:Otitis me rangel, acute Bronchitis DX:Bronchitis History of appendectomy 02/06 DX:Histo ry of appendectomy Bruxism 04/11 DX:Bruxism Unspecified family circumstance 02/07/2010 DX:Unspecified family circumstance; COMMENT: 50 a 02/09 Family History Medical History Relation Name Comments ADD / ADHD Brother Other: Other Father's side alzheimers 90s Other: scoliosis Mother was braced Relation Name Status Comments Brother Alive herbert naik 11-14-2002 Father Alive herbert aldana 1 [phone] unemployed [employer] worker Father's side Mother Alive [facility] trotter office cashier Social History Tobacco Use Types Packs/Day Years Used Date Smoking Tobacco: Never Smokeless Tobacco: Never Alcohol Use Standard Drinks/Week Comments Not Asked 0 (1 standard drink = 0.6 oz pur e alcohol) Comments Unknown Sex and Gender Information Value Date Recorded Sex Assigned at Not on file Legal Sex Female 6:50 AM EST Gender Identity Not on file Sexual Orientation Not on file Obstetrics History Last Filed Vital Signs Vital Sign Reading Time Taken Comments Blood Pressure 118/68 03/18/2022 2:02 PM EDT Sitting L Arm Pulse 78 03/18/2022 2:02 PM EDT Temperature - - Respiratory Rate - - Oxygen Saturation - - Inhaled Oxygen Concentration - - Weight 48.7 kg (107 lb 6.4 oz) 03/18/2022 2:02 PM EDT Height 155.5 cm (5' 1.22 ) 03/18/2022 2 :02 PM EDT Body Mass Index 20.15 03/18/2022 2:02 PM EDT Plan of Treatment Health Maintenance Due Date Last Done Comments Meningococcal B Vaccine (1 of 2 - Standard) 2020 Depression Screening 07/12/2022 HIV Screening 07/12/2022 Hepatitis C Screening 07/12/2022 Social Influencers of Health Screening 07/12/2022 Annual Well Child Visit (3-21 years old) 03/18/2023 03/18/2022, 01/25/2021, 06/02/2018, Additional history exists Gonorrhea/Chlamydia Screening 03/18/2023 03/18/2022 Hepatitis A Vaccines (1 of 2 - Risk 2-dose series) 12/26/2023 COVID-19 Vaccine ( - season) 2024 Influenza Vaccine (Season Ended) 2025 06/02/2018, 05/14/2007 DTaP,Tdap,and Td Vaccines (7 - Td or Tdap) 11/24/2026 11/24/2016, 11/22/2009, 05/14/2007, Additional history exists Hepatitis B Vaccines Completed 10/14/2005, 05/02/2005, 02/28/2005 HIB Vaccines Completed 04/20/2006, 10/01, 05/02/2005, Additional history exists IPV Vaccines Completed 11/22/2009, 04/03, 10/14/2005, Additional history exists Pneumococcal Vaccine: Pediatrics (0 to 5 Years) and At-Risk Patients (6 to 64 Years) Completed 11/22/2009, 04/20/2006, 10/14/2005, Additional history exists MMR Vaccines Completed 12/22/2011, 01/29/2006 Varicella Vaccines Completed 12/22/2011, 01/29/2006 HPV Vaccines Completed 06/02/2018, 11/24/2016 Meningococcal ACWY Vaccine Completed 03/18/2022, RSV Immunization Patients Under 20 months Aged Out No longer eligible based on patient's age to complete this topic Procedures Procedure Name Priority Date/Time Associated Diagnosis Comments GONORRHEA/CHLAMYDIA SCRREENING Routine 03/18/2022 from Last 3 Months or Most Recently Relevant to Health Maintenance Results * Gonorrhea/Chlamydia Screening (03/18/2022) HM Gonorrhea/Chla mydia Screening abstracted Historical Provider MD HEALTH MAINTENANCE Final Result from Last 3 Months or Most Recently Relevant to Health Maintenance Care Teams Hr Receptionist Relationship Specialty Start Date End Date Marbin Toussaint MD [facility] [place] [address] PCP - General Internal Medicine 11/30/24
--- OUTSIDE RECORDS SUMMARY | 2025-02-01 12:01 | XMS_ITS | Encounter Summary ---
Author Organization [employer] Address [address] [place] [address] Care Team Providers Care It Application Administrator Name Role Phone Unavailable Primary Care Provider Unavailabl e Reason for Visit * Reason Onset Date Comments New Patient 04/14/2023 Encounter Details Date Type Department Care Team (Late st Contact Info) Description 04/14/2023 Telephone [facility] [address] [place] [address] Babak Rico MD [address] [place] [address] New Patient Social History Tobacco Use Types Packs/Day Years Used Date Smoking Tobacco: Never Assessed Comments Unknown Sex and Gender Information Value Date Recorded Sex Assigned at Female 11/18/2024 11:26 AM EDT Legal Sex Female 11:32 AM EDT Gender Identity Female 11/18/2024 11:26 AM EDT Sexual Orientation Straight 11/18/2024 11 :26 AM EDT documented as of this encounter Miscellaneous Notes * Telephone Encounter - Gracia Eagle - 04/14/2023 1:48 PM EDT New Patients Par Gracia Dodson called to schedule New patient appt, pt did not answer left voicemail to give a call at [phone]. documented in this encounter Plan of Treatment Not on file documented as of this encounter Visit Diagnoses Not on filedocumented in this encounter
--- NOTE | 2025-02-01 12:14 | PC.NURSE ---
pt refused CT scan
[2025-02-01 12:26] VITALS: BP 109/64; PULSE 70; RESP 16; TEMP 36.5; O2SAT 99
== END 2025-02-01 12:26 | disposition left against medical advice (07) ==
PROVIDERS: Emergency Provider Emergency Medicine Emergency Medical Services
DX: M54.2 Cervicalgia (principal); S09.90XA Unspecified injury of head, initial encounter; V43.52XA Car driver injured in collision with other type car in traffic accident, initial encounter; Y93.89 Activity, other specified; Y92.414 Local residential or business street as the place of occurrence of the external cause; Y99.9 Unspecified external cause status; Z53.29 Procedure and treatment not carried out because of patient's decision for other reasons
CPT/HCPCS: 99282; 99284

== ENCOUNTER 2025-02-06 16:14 | Emergency (ER) | payer OTHER, SELFPAY ==
--- OUTSIDE RECORDS SUMMARY | 2025-02-06 17:59 | XMS_ITS | Encounter Summary ---
Author Organization [employer] Address [address] [facility] [address] [facility] [address] [place] [address] Care Team Providers Care Licensing And Registration Director Name Role Phone Unavailable Primary Care Provider Unavailabl e Reason for Visit * Reason Onset Date Comments New Patient 04/14/2023 Encounter Details Date Type Department Care Team (Late st Contact Info) Description 04/14/2023 Telephone [facility] [address] [place] [address] Babak Rico MD [address] [place] [address] New Patient Social History Tobacco Use Types [...] left voicemail to give a call at [phone]. documented in this encounter Plan of Treatment Not on file documented as of this encounter Visit Diagnoses Not on filedocumented in this encounter
--- OUTSIDE RECORDS SUMMARY | 2025-02-06 17:59 | XMS_ITS | Clinical Summary ---
Author Organization [facility] it Address [address] [place] [address] Care Team Providers Care Director Of Social Media Marketing Name Role Phone Marbin Toussaint MD Primary [...] (08/07/2024): Needs eval for adhd; was given [facility] 06/02/18 for completion and then schedule with pcp; Substance abuse (CMS/HCC V24, CMS/HCC V28) 11/06 Overview (08/07/2024): Crisis intervention 11/18. Agitation, using marijuana and etoh. Referred for f/u to [facility]. 01/2021: denies further use Encounters Date Type Department Care Team Description 12/22/2024 Telephone Adult Medicine [address] [address] Marbin Toussaint MD Letter for School/Work from Last 3 Months Immunizations Name Administration Dates Next Due DTaP (Infanrix) 6wks to less than 7yo 11/22/2009 ,05/14/2007 [id number] (Pentacel) 2mo to less than 5yo 04/20/2006,10/14/2005,05/02/2005,02/28 [id number] (Pediarix) 6 w ks to less than [...] Father Alive herbert aldana 1 [phone] unemployed [employer] worker Father's side Mother Alive [facility] trotter head cashier Social History Tobacco Use Types Packs/Day [...] Vaccine ( - season) 2024 Influenza Vaccine (#1) 2025 06/02/2018, 2006 DTaP,Tdap,and Td Vaccines (7 - Td or Tdap) 11/24/2026 11/24/2016, 11/22/2009, 05/14/2007, Additional history exists Hepatitis B Vaccines Completed 10/14/2005, 05/02/2005, 02/28/2005 HIB Vaccines Completed 04/20/2006, 10/01, 05/02/2005, Additional history exists IPV Vaccines Completed 11/22/2009, 04/03, 10/14/2005, Additional history exists Pneumococcal Vaccine: Pediatrics (0 to 5 Years) and At-Risk Patients (6 to 49 Years) Completed 11/22/2009, 04/20/2006, 10/14/2005, Additional history [...] Recently Relevant to Health Maintenance Care Teams Director Of Social Media Marketing Relationship Specialty Start Date End Date Marbin Toussaint MD [facility] [place] [address] PCP - General Internal Medicine 11/30/24
== END 2025-02-06 18:16 | disposition left against medical advice (07) ==
PROVIDERS: Emergency Provider Emergency Medicine
DX: Z04.1 Encounter for examination and observation following transport accident (principal); Z53.21 Procedure and treatment not carried out due to patient leaving prior to being seen by health care provider

== ENCOUNTER 2025-02-07 08:08 | Emergency (ER) | payer OTHER, SELFPAY ==
[2025-02-07 08:15] VITALS: BP 113/80; PULSE 87; RESP 18; TEMP 36.8; O2SAT 98; BMI 20.5
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
--- OUTSIDE RECORDS SUMMARY | 2025-02-07 08:24 | XMS_ITS | Encounter Summary ---
Author Organization [employer] Address [address] [facility] [address] [place] [address] Care Team Providers Care Industrial Insulator Name Role Phone Unavailable Primary Care Provider Unavailabl e Reason for Visit * Reason Onset Date Comments New Patient 04/14/2023 Encounter Details Date Type Department Care Team (Late st Contact Info) Description 04/14/2023 Telephone [facility] [address] [place] [address] Babak Rico MD [address] [place] [address] New Patient Social History Tobacco Use Types [...] left voicemail to give a call at [phone]. documented in this encounter Plan of Treatment Not on file documented as of this encounter Visit Diagnoses Not on filedocumented in this encounter
--- OUTSIDE RECORDS SUMMARY | 2025-02-07 08:24 | XMS_ITS | Clinical Summary ---
Author Organization [facility] it Address [address] [place] [address] Care Team Providers Care Lead Burner Supervisor Name Role Phone Marbin Toussaint MD Primary [...] (08/07/2024): Needs eval for adhd; was given [facility] 06/02/18 for completion and then schedule with pcp; Substance abuse (CMS/HCC V24, CMS/HCC V28) 11/06 Overview (08/07/2024): Crisis intervention 11/18. Agitation, using marijuana and etoh. Referred for f/u to [facility]. 01/2021: denies further use Encounters Date Type Department Care Team Description 12/22/2024 Telephone Adult Medicine [address] [address] Marbin Toussaint MD Letter for School/Work from Last 3 Months Immunizations Name Administration Dates Next Due DTaP (Infanrix) 6wks to less than 7yo 11/22/2009 ,05/14/2007 [id number] (Pentacel) 2mo to less than 5yo 04/20/2006,10/14/2005,05/02/2005,02/28 [id number] (Pediarix) 6 w ks to less than [...] Father Alive herbert aldana 1 985 unemployed [employer] worker Father's side Mother Alive [facility] [employer] fire operations specialist Social History Tobacco Use Types Packs/Day Years [...] Recently Relevant to Health Maintenance Care Teams Lead Burner Supervisor Relationship Specialty Start Date End Date Marbin Toussaint MD [facility] [place] [id number] PCP - General Internal Medicine 11/30/24
[2025-02-07 08:25] VITALS: BP 113/80; PULSE 87; RESP 18; TEMP 36.8; O2SAT 98
== END 2025-02-07 08:27 | disposition home or self-care (01) ==
PROVIDERS: Emergency Provider Emergency Medicine
DX: Z02.79 Encounter for issue of other medical certificate (principal); Z04.1 Encounter for examination and observation following transport accident
CPT/HCPCS: 99282

== ENCOUNTER 2025-03-12 11:36 | Emergency (ER) | payer OTHER, SELFPAY ==
--- NOTE | 2025-03-12 12:00 | ED.GENADULT ---
HPI - General Adult General Chief complaint: Urogenital-Female Stated complaint: Vaginal cyst Time Seen by Provider: 03/12/25 13:40 Related Data Previous Rx's ?Medication ?Instructions ?Recorded amoxicillin 875 mg tablet 875 mg PO BID Bacterial 12/10/21 pharyngitis 10 days #20 tabs cefdinir 300 mg capsule 300 mg PO BID 7 days #14 caps 02/27/23 doxycycline hyclate 100 mg tablet 100 mg PO BID 7 days #14 tabs 02/27/23 fluconazole 150 mg tablet 150 mg PO Q3D 2 doses #2 tabs 02/27/23 (Diflucan) metronidazole 500 mg tablet 500 mg PO BID 7 days #14 tabs 02/27/23 miconazole nitrate 4 % (200 mg)-2 1 supp vaginal BEDTIME 3 days #24 04/06/24 % (9 gram)vaginal,prefill grams appl,cream cephalexin 500 mg capsule 500 mg PO QID 7 days #28 caps 05/08/24 doxycycline hyclate 100 mg capsule 100 mg PO BID 7 days #14 caps 05/08/24 metronidazole 500 mg tablet 500 mg PO BID 7 days #14 tabs 05/10/24 levofloxacin 250 mg tablet 250 mg PO DAILY 3 days #3 tabs 05/25/24 metronidazole 500 mg tablet 500 mg PO Q12H 7 days #14 tabs 05/25/24 cyclobenzaprine 5 mg tablet 5 mg PO BEDTIME PRN muscle spasm 01/26/25 #10 tabs lidocaine 5 % topical patch 1 patch topical DAILY #15 ea 01/26/25 naproxen 500 mg tablet (Naprosyn) 500 mg PO BID PRN PAIN #20 tabs 03/12/25 sulfamethoxazole 800 1 tab PO BID #14 tabs 03/12/25 mg-trimethoprim 160 mg tablet (Bactrim DS) Allergies Allergy/AdvReac Type Severity Reaction Status Date / Time No Known Allergies (No Known Allergy Verified 03/12/25 12:07 Allergies*) [facility] Past Medical History Medical History No known health problems Social History Social History Patient Tobacco Use Status: Never used Tobacco Smoked in Last 30 Days: No Use of substances other than those prescribed or required for medical reasons: No Advance Directives: No Advance Directives Information Provided: Yes Do you have a plan to hurt others: No Plan Patient : No Physical Exam ED Vital Signs: Vital Signs - 24 hr 03/12/25 12:03 03/12/25 13:25 03/12/25 14:34 Temperature 98.3 F 0 F L Pulse Rate 76 73 73 Respiratory Rate 16 18 18 Blood Pressure 124/63 113/60 113/60 Pulse Oximetry 100 100 100 Oxygen Delivery Method Room Air Room Air Room Air BMI result Body Mass Index 21.1 Course Course Course Narrative: Rapid medical examination performed in triage by Angella Saenz PA-C. Patient is a 19 year old assigned female at presenting to the emergency department with a right sided vaginal cyst. Patient states she has been dealing with a vaginal cyst / abscess after shaving that continues to rupture and then heal and rupture again. Detailed physical exam and review of systems are deferred to the hydrography teacher. Patient placed back in the waiting room pending room availability. Patient evaluated by Dr. Church and dispositioned by him. Please refer to his note from 03/12/2025. Discharge Plan Discharge Clinical Impression: Abscess Patient Disposition: Home, Self-Care Instructions: Abscess (ED) Additional Instructions: Follow-up with your primary care physician as scheduled you have an appointment in about 1 week return to the emergency if worse if you have a fever any concern Prescriptions: New sulfamethoxazole-trimethoprim [Bactrim DS] 800-160 mg tablet 1 tab PO BID Qty: 14 0RF naproxen [Naprosyn] 500 mg tablet 500 mg PO BID PRN (Reason: PAIN) Qty: 20 0RF No Action amoxicillin 875 mg tablet 875 mg PO BID 10 Days Qty: 20 0RF metronidazole 500 mg tablet 500 mg PO BID 7 Days Qty: 14 0RF cefdinir 300 mg capsule 300 mg PO BID 7 Days Qty: 14 0RF doxycycline hyclate 100 mg tablet 100 mg PO BID 7 Days Qty: 14 0RF fluconazole [Diflucan] 150 mg tablet 150 mg PO Q3D Qty: 2 0RF miconazole nitrate 4 % (200 mg)- 2 % (9 gram) comb pack,prefill appl, cream 1 supp vaginal BEDTIME 3 Days Qty: 24 0RF cephalexin 500 mg capsule 500 mg PO QID 7 Days Qty: 28 0RF doxycycline hyclate 100 mg capsule 100 mg PO BID 7 Days Qty: 14 0RF metronidazole 500 mg tablet 500 mg PO BID 7 Days Qty: 14 0RF metronidazole 500 mg tablet 500 mg PO Q12H 7 Days Qty: 14 0RF levofloxacin 250 mg tablet 250 mg PO DAILY 3 Days Qty: 3 0RF lidocaine 5 % adhesive patch,medicated 1 patch topical DAILY Qty: 15 0RF Rx Instructions: leave on most painful area for up to 12 hrs cyclobenzaprine 5 mg tablet 5 mg PO BEDTIME PRN (Reason: muscle spasm) Qty: 10 0RF Referrals: Group,[facility] [Primary Care Provider, Primary Care] Interventions: ED Discharge Assessment Last Done: 03/12/25 14:34 Discharge Date/Time: 03/12/25 14:35 Print Language: Uzbek
[2025-03-12 12:03] VITALS: BP 124/63; PULSE 76; RESP 16; TEMP 36.8; O2SAT 100; BMI 21.1
[2025-03-12 13:25] VITALS: BP 113/60; PULSE 73; RESP 18; O2SAT 100
--- NOTE | 2025-03-12 13:28 | PC.NURSE ---
19 F F presents to ED with vaginal cysts that started 1 week ago and burst today with white drainage. Groin pain 03/12. A+OX4, ambulatory, calm cooperative. RR even and unlabored, denies SOB or CP.
--- NOTE | 2025-03-12 13:43 | ED_ITS ---
HPI - Female Genitourinary General Chief complaint: Urogenital-Female Stated complaint: Vaginal cyst Time Seen by Provider: 03/12/25 13:40 Source: patient Mode of arrival: ambulatory Limitations: no limitations History of Present Illness HPI Narrative: This is a 19 years old female presented to the emergency department complaining of the right labia sees for about 2 weeks she states she is unable to sit or urinate. She has no fever no vomiting MD elicited complaint: other (Right labial cyst) Onset (ago): week(s) (2) Location of symptoms: external genitalia Severity: moderate Female Urogenital Radiation: Non-Radiating Consistency: constant Vaginal discharge: none Vaginal bleeding: none Urinary symptoms: Dysuria Exacerbating factors: none Relieving factors: none Associated symptoms: denies other symptoms Related Data Previous Rx's ?Medication ?Instructions ?Recorded amoxicillin 875 mg tablet 875 mg PO BID Bacterial pharyngitis 10 days #20 tabs cefdinir 300 mg capsule 300 mg PO BID 7 days #14 cap s 02/27/23 doxycycline hyclate 100 mg tablet 100 mg PO BID 7 days #14 tabs 02/27/23 fluconazole 150 mg tablet 150 mg PO Q3D 2 doses #2 tab s 02/27/23 (Diflucan) metronidazole 500 mg tablet 500 mg PO BID 7 days #14 t abs 02/27/23 miconazole nitrate 4 % (200 mg)-2 1 supp vaginal BEDTI ME 3 days #24 04/06/24 % (9 gram)vaginal,prefill grams appl,cream cephalexin 500 mg capsule 500 mg PO QID 7 days #28 cap s 05/08/24 doxycycline hyclate 100 mg capsule 100 mg PO BID 7 day s #14 caps 05/08/24 metronidazole 500 mg tablet 500 mg PO BID 7 days #14 t abs 05/10/24 levofloxacin 250 mg tablet 250 mg PO DAILY 3 days #3 t abs 05/25/24 metronidazole 500 mg tablet 500 mg PO Q12H 7 days #14 tabs 05/25/24 cyclobenzaprine 5 mg tablet 5 mg PO BEDTIME PRN muscle spasm 01/26/25 #10 tabs lidocaine 5 % topical patch 1 patch topical DAILY #15 ea 01/26/25 naproxen 500 mg tablet (Naprosyn) 500 mg PO BID PRN PA IN #20 tabs 03/12/25 sulfamethoxazole 800 1 tab PO BID #14 tabs mg-trimethoprim 160 mg tablet (Bactrim DS) Allergies Allergy/AdvReac Type Severity Reaction Status Date / Time No Known Allergies (No Known Allergy Verified 03/12/25 12:07 Allergies*) Review of Systems Constitutional: Constitutional: Reports no additional constitutional complaints Respiratory: Respiratory: Reports no additional respiratory complaints [facility] Past Medical History Attestation statement: The following information was validated with the patient. [facility] Narrative: None Medical History No known health problems Social History Social History Patient Tobacco Use Status: Never used Tobacco Smoked in Last 30 Days: No Use of substances other than those prescribed or required for medical reasons: No Advance Directives: No Advance Directives Information Provided: Yes Do you have a plan to hurt others: No Plan Patient : No Physical Exam Exam: Exam: No acute distress comfortable in the stretcher Vital Signs: Vital Signs: Last Vital Signs Temp 0 F L 03/12/25 14:34 Pulse 73 03/12/25 14:34 Resp 18 03/12/25 14:34 BP 113/60 03/12/25 14:34 Pulse Ox 100 03/12/25 14:34 O2 Del Method Room Air 03/12/25 14:34 BMI result Body Mass Index 21.1 Const: General: cooperative Nutritional Appearance: average body habitus Limitations: no limitations HEENT: Head: Yes normal to inspection Mouth: Normal oral and palatal mucosa present Neck: Neck: Yes normal visual inspection Chest: Chest palpation & inspection: normal inspection of the chest Resp: Effort & Inspection: normal respiratory effort Auscultation: clear to auscultation bilaterally Cardio: Jugular venous distension: no JVD Rate: regular rate Rhythm: regular rhythm GI: Inspection: Yes normal to inspection Palpation (GI): Soft to palpation : Other: Examination of the genitalia carry out with repair cameraman female nurse showed very small skin abscess in the right right external labia (non internally) very small no fluctuance Medical Decision Making Medical Decision Making MDM Narrative: Patient presented to the emergency department with a very small skin abscess in the right genitalia no fluctuance no need of I and D this is not a Bartholin cyst. I think she can be discharged home she is not toxic-appearing she looks well we will give a Bactrim for MRSA coverage as well Differential Diagnosis Differential Diagnoses: The differential diagnosis associated with the presentation includes Bartholin cyst/abscess/cellulitis Admission/Observation Consideration of admission/observation: Escalation of care including admission/observation considered Prescription Management I considered prescription management with: Antibiotic Discharge Plan Discharge Clinical Impression: Abscess Patient Disposition: Home, Self-Care Instructions: Abscess (ED) Additional Instructions: Follow-up with your primary care physician as scheduled you have an appointment in about 1 week return to the emergency if worse if you have a fever any concern Prescriptions: New sulfamethoxazole-trimethoprim [Bactrim DS] 800-160 mg tablet 1 tab PO BID Qty: 14 0RF naproxen [Naprosyn] 500 mg tablet 500 mg PO BID PRN (Reason: PAIN) Qty: 20 0RF No Action amoxicillin 875 mg tablet 875 mg PO BID 10 Days Qty: 20 0RF metronidazole 500 mg tablet 500 mg PO BID 7 Days Qty: 14 0RF cefdinir 300 mg capsule 300 mg PO BID 7 Days Qty: 14 0RF doxycycline hyclate 100 mg tablet 100 mg PO BID 7 Days Qty: 14 0RF fluconazole [Diflucan] 150 mg tablet 150 mg PO Q3D Qty: 2 0RF miconazole nitrate 4 % (200 mg)- 2 % (9 gram) comb pack,prefill appl, cream 1 supp vaginal BEDTIME 3 Days Qty: 24 0RF cephalexin 500 mg capsule 500 mg PO QID 7 Days Qty: 28 0RF doxycycline hyclate 100 mg capsule 100 mg PO BID 7 Days Qty: 14 0RF metronidazole 500 mg tablet 500 mg PO BID 7 Days Qty: 14 0RF metronidazole 500 mg tablet 500 mg PO Q12H 7 Days Qty: 14 0RF levofloxacin 250 mg tablet 250 mg PO DAILY 3 Days Qty: 3 0RF lidocaine 5 % adhesive patch,medicated 1 patch topical DAILY Qty: 15 0RF Rx Instructions: leave on most painful area for up to 12 hrs cyclobenzaprine 5 mg tablet 5 mg PO BEDTIME PRN (Reason: muscle spasm) Qty: 10 0RF Referrals: Group,[facility] [Primary Care Provider, Primary Care] Interventions: ED Discharge Assessment Last Done: 03/12/25 14:34 Discharge Date/Time: 03/12/25 14:35 Print Language: South African
--- NOTE | 2025-03-12 13:54 | PC.NURSE ---
chaperoned dr taylor during a vaginal exam
[2025-03-12 14:34] VITALS: BP 113/60; PULSE 73; RESP 18; TEMP -17.7; TEMP 0; O2SAT 100
== END 2025-03-12 14:35 | disposition home or self-care (01) ==
PROVIDERS: Emergency Provider Emergency Medicine
DX: N76.4 Abscess of vulva (principal); N76.0 Acute vaginitis; R30.0 Dysuria
CPT/HCPCS: 99284

== ENCOUNTER 2025-05-18 18:00 | Emergency (ER) | payer OTHER, SELFPAY ==
[2025-05-18 18:13] VITALS: BP 127/58; PULSE 84; RESP 16; TEMP 36.7; O2SAT 100; BMI 18.3
--- NOTE | 2025-05-18 18:18 | ED.GENADULT ---
HPI - General Adult General Chief complaint: Abdominal Pain Stated complaint: headache,? uti Time Seen by Provider: 05/18/25 18:57 Source: patient, RN notes reviewed and old records reviewed Mode of arrival: ambulatory Limitations: no limitations History of Present Illness ED Provider: NIKKI Licona HPI narrative: 19-year-old female without significant medical history presents to the ED due to 2 days of vaginal itching and lower back pain. Patient states she is concerned for yeast infection as she has had intense puritis of the vaginal area with thick clumpy vaginal discharge. She reports she has been scratching and rubbing the area causing burning when urine touches the skin, but denies burning from the urethra or increased urinary frequency. Patient states she is concerned for UTI as well as she has recurrent UTI's in the past and is concerned this is what is causing her back pain. Patient states she has had chlamydia in the past but does not think this is what she has right now but would like to be tested in the department today. Denies fevers, increased urinary frequency, abdominal pain, nausea, vomiting. MD complaint: Vaginal itching Related Data Previous Rx's ?Medication ?Instructions ?Recorded amoxicillin 875 mg tablet 875 mg PO BID Bacterial 12/10/21 pharyngitis 10 days #20 tabs cefdinir 300 mg capsule 300 mg PO BID 7 days #14 caps 02/27/23 doxycycline hyclate 100 mg tablet 100 mg PO BID 7 days #14 tabs 02/27/23 fluconazole 150 mg tablet 150 mg PO Q3D 2 doses #2 tabs 02/27/23 (Diflucan) metronidazole 500 mg tablet 500 mg PO BID 7 days #14 tabs 02/27/23 miconazole nitrate 4 % (200 mg)-2 1 supp vaginal BEDTIME 3 days #24 04/06/24 % (9 gram)vaginal,prefill grams appl,cream cephalexin 500 mg capsule 500 mg PO QID 7 days #28 caps 05/08/24 doxycycline hyclate 100 mg capsule 100 mg PO BID 7 days #14 caps 05/08/24 metronidazole 500 mg tablet 500 mg PO BID 7 days #14 tabs 05/10/24 levofloxacin 250 mg tablet 250 mg PO DAILY 3 days #3 tabs 05/25/24 metronidazole 500 mg tablet 500 mg PO Q12H 7 days #14 tabs 05/25/24 cyclobenzaprine 5 mg tablet 5 mg PO BEDTIME PRN muscle spasm 01/26/25 #10 tabs lidocaine 5 % topical patch 1 patch topical DAILY #15 ea 01/26/25 naproxen 500 mg tablet (Naprosyn) 500 mg PO BID PRN PAIN #20 tabs 03/12/25 sulfamethoxazole 800 1 tab PO BID #14 tabs 03/12/25 mg-trimethoprim 160 mg tablet (Bactrim DS) fluconazole 150 mg tablet 150 mg PO DAILY 1 dose #1 tab 05/18/25 Allergies Allergy/AdvReac Type Severity Reaction Status Date / Time No Known Allergies (No Known Allergy Verified 05/18/25 18:16 Allergies*) Review of Systems Review of Systems: CONST: Negative for fever, body aches and chills. HENT: Negative for neck pain/stiffness, headache, congestion, sore throat, swelling. EYES: Negative for discharge/pain or vision changes. RESP: Negative for cough/hemoptysis and shortness of breath. CV: Negative chest pain, difficulty breathing, palpitations. ABD: Negative pain, nausea, vomiting. : Negative increase frequency, dysuria, blood in urine or stool. POS vaginal itching with thick clumpy vaginal discharge. MUSC: Negative for muscle aches, edema. SKIN: Negative rash, lesions/sores. NEURO: Negative headache, dizziness, weakness. Yes all other systems are reviewed and are negative [facility] Past Medical History Attestation statement: The following information was validated with the patient. Source: old records reviewed and nursing notes reviewed Medical History No known health problems Social History Social History Unable to assess alcohol history related to: Unknown Patient Tobacco Use Status: Never used Tobacco Use of substances other than those prescribed or required for medical reasons: No Advance Directives: No Advance Directives Information Provided: No Do you have a plan to hurt others: No Plan Physical Exam ED Vital Signs: Vital Signs - 24 hr 05/18/25 18:13 05/18/25 22:22 Temperature 98.0 F 98.0 F Pulse Rate 84 84 Respiratory Rate 16 16 Blood Pressure 127/58 L 127/58 L Pulse Oximetry 100 100 Oxygen Delivery Method Room Air Room Air BMI result Body Mass Index 18.3 GENERAL APPEARANCE: ?AxOx4, generally well-appearing, no acute distress. HEENT: ?NC, AT. MMM. EOMI, clear conjunctiva, oropharynx clear. NECK: ?Supple without lymphadenopathy.? No stiffness or restricted ROM. HEART:? Normal rate and regular rhythm, normal S1/S2, no m/r/g LUNGS:? CTAB, moving air well. No crackles or wheezes are heard. ABDOMEN: ?Soft, nontender, nondistended BACK: mild CVA tenderness to percussion EXTREMITIES: ?Without cyanosis, clubbing or edema. NEUROLOGICAL: ?Grossly nonfocal. Alert and oriented, moving all 4 extremities. Observed to ambulate with normal gait. Skin: ?Warm and dry without any rash. Course Course Course Narrative: RME: 19-year-old female presents to ED for low back pain and suprapubic pain with some dysuria. Labs ordered Medications Administered Discontinued Medications Generic Name Dose Route Start Last Admin Trade Name Tyshawn PRN Reason Stop Dose Admin Acetaminophen 975 mg 05/18/25 20:07 05/18/25 20:52 Acetaminophen 325 Mg Tablet PO 05/18/25 20:08 975 mg ONCE ONE Administration Fluconazole 150 mg 05/18/25 21:51 05/18/25 22:00 Fluconazole 150 Mg Tablet PO 05/18/25 21:52 150 mg ONCE ONE Administration Ketorolac Tromethamine 30 mg 05/18/25 20:07 05/18/25 20:53 Ketorolac Tromethamine 30 Mg/Ml Vial IM 05/18/25 20:08 Not Given ONCE ONE Medical Decision Making Medical Decision Making MDM Narrative: 1-year-old female without significant medical history presents to the ED due to 2 days of vaginal itching and lower back pain. Patient states she is concerned for yeast infection as she has had intense puritis of the vaginal area with thick clumpy vaginal discharge. She reports she has been scratching and rubbing the area causing burning when urine touches the skin, but denies burning from the urethra or increased urinary frequency. Patient states she is concerned for UTI as well as she has recurrent UTI's in the past and is concerned this is what is causing her back pain. Labs without leukocytosis/leukopenia, H&H stable, mildly elevated glucose at 1:36 a.m., no electrolyte abnormalities, beta hCG negative. UA negative for blood, shows trace leukocyte esterase, however no other signs of infection. Patient without urinary frequency or pain with urination, no indication for antibiotic therapy at this time. Patient is afebrile, without leukocytosis/leukopenia, very mild discomfort with CVA percussion, UA without evidence of extensive infection- pyelonephritis less likely. Patient performed self swabs for chlamydia, gonorrhea, yeast, BV. Patient afebrile, without leukocytosis, Due to patient's symptoms will provide dose of 150mg diflucan with follow up dose in 3 days. Patient will be contacted if other vaginal serology is positive. 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 Patient is in agreement with the plan. Differential Diagnosis Differential Diagnoses: The differential diagnosis associated with the presentation includes Pyelonephritis UTI Bacterial vaginosis Yeast infection Gonorrhea Chlamydia Admission/Observation Consideration of admission/observation: Escalation of care including admission/observation considered Lab Data MDM Lab Attestation statement: I reviewed the patient's lab results. 05/18/25 18:27 05/18/25 18:27 Labs: Lab Results 05/18/25 05/18/25 Range/Units 18:27 19:59 WBC 9.1 (4.8-10.8) X10*3/uL RBC 4.59 (4.20-5.50) X10*6/uL Hgb 13.2 (12.0-16.0) g/dl Hct 41.1 (37.0-47.0) % MCV 89.5 (80.0-98.0) fL MCH 28.8 (27.0-33.0) pg MCHC 32.1 (31.0-35.0) g/dl RDW 11.7 (11.0-16.0) % Plt Count 238 (160-400) X10*3/uL MPV 10.5 (9.4-12.3) fL Immature Gran % (Auto) 0.3 (0.0-0.4) % Neut % (Auto) 69.6 (45-73) % Lymph % (Auto) 22.9 (20-40) % [place] % (Auto) 5.0 (2-11) % Eos % (Auto) 1.4 (0-4) % Baso % (Auto) 0.8 (0-2) % Lymph # (Auto) 2.1 (1.2-4.9) X10*3/uL [place] # (Auto) 0.5 (0.1-1.2) X10*3/uL Eos # (Auto) 0.1 (0.0-0.4) X10*3/uL Baso # (Auto) 0.1 (0.0-0.2) X10*3/uL Abs Immat Gran (auto) 0.03 (0.00-0.03) X10*3/uL Absolute Neuts (auto) 6.3 (2.0-8.3) x10*3/uL Absolute Nucleated RBC 0.000 (0.0-0.012) X10*3/uL Nucleated RBC % (auto) 0.0 (0.0-0.2) /100WBC Sodium 141 (135-145) mmol/L Potassium 4.1 (3.3-5.1) mmol/L Chloride 105 (96-108) mmol/L Carbon Dioxide 27 (22-29) mmol/L Anion Gap 13 (12-20) BUN 10 (9-16) mg/dL Creatinine 0.67 (0.5-1.4) mg/dL Estim Creat Clear Calc 89.8 Estimated GFR > 60 Random Glucose 136 H (60-115) mg/dL Calcium 9.9 D (8.4-10.2) mg/dL Total Bilirubin 0.6 (0.0-1.0) mg/dL AST 23 (5-31) U/L ALT 16 (0-31) U/L Alkaline Phosphatase 66 (39-117) U/L Total Protein 8.3 H (6.5-8.0) g/dL Albumin 5.4 H (3.5-5.0) g/dL Beta HCG, Quant < 2 mIU/mL Urine Color Yellow Urine Appearance Clear Urine pH 7.0 (5.0-9.0) Ur Specific [place] 1.015 (1.005-1.025) Urine Protein Negative (Neg-Trace) mg/dL Urine Glucose (UA) Negative (Negative) mg/dL Urine Ketones Negative (Negative) mg/dL Urine Blood Negative (Negative) Urine Nitrite Negative (Negative) Ur Leukocyte Esterase Trace H (Negative) Urine RBC 0-2 (0-2) /HPF Urine WBC 0-5 (0-5) /HPF Ur Squamous Epith Cells 0-2 (0-2) /HPF Urine Bacteria None Seen (None Seen) Hyaline Casts 0-2 (0-2) /LPF Urine Test NEGATIVE (NEGATIVE) Chlam trachomat DNA PCR NOT DETECTED (Not Detect.) N.gonorrhoeae DNA (PCR) NOT DETECTED (Not Detect.) T. vaginalis (PCR) NOT DETECTED (Not Detect) Bact vaginosis (PCR) NEGATIVE (Negative) C. krusei/glabrata (PCR) NOT DETECTED (Not Detect) Felicity group (PCR) DETECTED A (Not Detect) External Record Review External record reviewed: Inpatient record, Office record and Outpatient record Prescription Management I considered prescription management with: Antibiotic (I considered antibiotic for UTI however trace leukocyte esterase no other indication for antibiotics at this time) Chronic Conditions Patient?s care impacted by: Other (No known medical history) Social Determinants Patient?s care significantly limited by Social Determinants of Health including: Other Social Determinant of Health Discharge Plan Discharge Clinical Impression: Vaginal yeast infection Patient Disposition: Home, Self-Care Instructions: Yeast Infection (ED) Additional Instructions: You were evaluated in the ED due to back pain, and vaginal itching. Your labs were reassuring as you did not have a significant elevation in your white blood cell count indicative of infection. Your UA shows trace bacteria without blood, this will be cultured and you will be called if positive needing antibiotics. Your vaginal swabs are still pending, we will call you if positive. Due to your symptoms you are being treated with 150 mg of fluconazole for vaginal yeast infection today in the department. I will prescribe you an additional pill that you will take 3 days from now for further coverage. If any of your other vaginitis panel comes back positive we will call you and appropriate antibiotics will be sent in. Please follow up with your primary care doctor and obtain referral to gynecology for further management and evaluation and to become established for regular Pap smears as this is important for your vaginal health. Please return to the emergency department if you experience fevers over 100.4?, worsening back pain, worsening vaginal itching, increased or worsening vaginal discharge, or any new/worsening/concerning symptoms. Prescriptions: New fluconazole 150 mg tablet 150 mg PO DAILY Qty: 1 0RF Rx Instructions: administer on day 1 of therapy No Action amoxicillin 875 mg tablet 875 mg PO BID 10 Days Qty: 20 0RF metronidazole 500 mg tablet 500 mg PO BID 7 Days Qty: 14 0RF cefdinir 300 mg capsule 300 mg PO BID 7 Days Qty: 14 0RF doxycycline hyclate 100 mg tablet 100 mg PO BID 7 Days Qty: 14 0RF fluconazole [Diflucan] 150 mg tablet 150 mg PO Q3D Qty: 2 0RF miconazole nitrate 4 % (200 mg)- 2 % (9 gram) comb pack,prefill appl, cream 1 supp vaginal BEDTIME 3 Days Qty: 24 0RF cephalexin 500 mg capsule 500 mg PO QID 7 Days Qty: 28 0RF doxycycline hyclate 100 mg capsule 100 mg PO BID 7 Days Qty: 14 0RF metronidazole 500 mg tablet 500 mg PO BID 7 Days Qty: 14 0RF metronidazole 500 mg tablet 500 mg PO Q12H 7 Days Qty: 14 0RF levofloxacin 250 mg tablet 250 mg PO DAILY 3 Days Qty: 3 0RF lidocaine 5 % adhesive patch,medicated 1 patch topical DAILY Qty: 15 0RF Rx Instructions: leave on most painful area for up to 12 hrs cyclobenzaprine 5 mg tablet 5 mg PO BEDTIME PRN (Reason: muscle spasm) Qty: 10 0RF sulfamethoxazole-trimethoprim [Bactrim DS] 800-160 mg tablet 1 tab PO BID Qty: 14 0RF naproxen [Naprosyn] 500 mg tablet 500 mg PO BID PRN (Reason: PAIN) Qty: 20 0RF Interventions: ED Discharge Assessment Last Done: 05/18/25 22:22 Discharge Date/Time: 05/18/25 22:28 Print Language: Chinese
[2025-05-18 18:33] LABS: MANUAL DIFF FLAG NO
[2025-05-18 18:35] LABS: Hematocrit 41.1 % (37.0-47.0); Hemoglobin 13.2 g/dl (12.0-16.0); Imm Gran Abs Auto 0.03 X10*3/uL (0.00-0.03); Imm Gran Pct Auto 0.3 % (0.0-0.4); Lymphocytes Absolute Auto 2.1 X10*3/uL (1.2-4.9); Mean Corpuscular HGB Conc 32.1 g/dl (31.0-35.0); Mean Corpuscular Hemoglobin 28.8 pg (27.0-33.0); Mean Corpuscular Volume 89.5 fL (80.0-98.0); NRBC Abs Auto 0.000 X10*3/uL (0.0-0.012); NRBC Pct Auto 0.0 /100WBC (0.0-0.2); Platelet Count 238 X10*3/uL (160-400); Red Blood Count 4.59 X10*6/uL (4.20-5.50); White Blood Count 9.1 X10*3/uL (4.8-10.8)
[2025-05-18 18:37] LABS: Appearance Urine Clear; Glucose Urine UA Negative (Negative); PH 7.0 (5.0-9.0); Specific Gravity - Urine 1.015 (1.005-1.025); UMIC TRIGGER UACC YES
[2025-05-18 18:38] LABS: UPreg QC Valid YES
[2025-05-18 18:55] LABS: Alanine Aminotransferase 16 U/L (0-31); Albumin Level 5.4 g/dL (3.5-5.0); Alkaline Phosphatase 66 U/L (39-117); Anion Gap 13 (12-20); Aspartate Amino Transferase 23 U/L (5-31); Blood Urea Nitrogen 10 mg/dL (9-16); Calcium 9.9 mg/dL (8.4-10.2); Carbon Dioxide 27 mmol/L (22-29); Chloride 105 mmol/L (96-108); Creatinine Clr Calc Pharmacy 89.8; Estimated Glomerular Filt Rate > 60; Potassium 4.1 mmol/L (3.3-5.1); Sodium 141 mmol/L (135-145); Total Protein 8.3 g/dL (6.5-8.0)
--- OUTSIDE RECORDS SUMMARY | 2025-05-18 19:56 | XMS_ITS | Encounter Summary ---
Author Organization [facility] Address [address] [place] [address] Care Team Providers Care Airplane Rigger Name Role Phone Dion Quezada MD Primary Care Provider Dilshad Chase MD Primary Care Provider Lucina Conklin DO Primary Care Provider Unav Tg Trujillo Primary Care Provider [phone] Adriana Fernández MD Primary Care Provider [phone] Reason for Visit * Reason Onset Date Comments DCF 02/15/2015 Encounter Details Date Type Department Care Team Description 02/15/2015 Telephone Pediatrics - [address] [address] Dion Quezada MD [facility] Social History Tobacco Use Types Packs/Day Years Used Date Smoking Tobacco: Never Alcohol Use Standard Drinks/Week Comments Not Asked 0 (1 standard drink = 0.6 oz pur e alcohol) Sex Assigned at Date Recorded Not on file Job Start Date Occupation Industry Not on file Not on file Not on file documented as of this encounter Miscellaneous Notes * Telephone Encounter - Kenia Ramos L.P.N. - 02/15/2015 3:20 PM EDT Infomration given on last WCC and imms. Up to date on imms. No concerns. DCF stated that Dad has temporary custody of child right now. FYI. * Telephone Encounter - Erin Cast - 02/15/2015 2:47 PM EDT Name and title of caller: ROSA : 2005 Age: 9 yr. Is this an active 51A case: Yes. Case is currently active. Message forwarded to nurse to provide information. Message forwarded to nurse for follow up documented in this encounter Plan of Treatment Not on file documented as of this encounter Visit Diagnoses Not on filedocumented in this encounter Care Teams Airplane Rigger Relationship Specialty Start Date End Date Dion Quezada MD PCP - General 12/12/10 10/06/16 Dilshad Costa MD PCP - General Pediatrics 10/07/16 12/29/18 Lucina Oglesby DO PCP - General Pediatrics 12/30/18 01/30/22 Tg Robison FNP [address] [place] [address] PCP - General Pediatrics 01/31/22 07/14/23 Adriana Fernández MD [address] [place] [address] PCP - General Internal Medicine 07/15/23 documented as of this encounter
--- OUTSIDE RECORDS SUMMARY | 2025-05-18 19:56 | XMS_ITS | Encounter Summary ---
Author Organization [facility] Address [address] [place] [address] Care Team Providers Care Service And Repair Supervisor Name Role Phone Dion Quezada MD Primary Care Provider Dilshad Chase MD Primary Care Provider Lucina Conklin DO Primary Care Provider Unav Tg Trujillo Primary Care Provider Adriana Fernández MD Primary Care Provider Reason for Visit * Reason Onset Date Comments DCF 02/21/2015 Encounter Details Date Type Department Care Team Description 02/21/2015 Telephone Pediatrics - [address] [address] Dion Quezada MD [facility] Social History Tobacco Use Types Packs/Day Years [...] Telephone Encounter - Kenia Ramos L.P.N. - 02/22/2015 10:04 AM EDT Information given on last WCC and imms. Up to date on imms. Concern: Chronic head lice. FYI. * Telephone Encounter - Alvina Calderon R.N. - 02/21/2015 4:14 PM EDT Left message * Telephone Encounter - Alexandru Mulligan - 02/21/2015 4:09 PM EDT Name and title of caller: daly : 2005 Age: 9 yr. Is this an active 51A case: Yes. Case is currently active. Message forwarded to nurse to provide information. Message forwarded to nurse for follow up documented in this encounter Plan of Treatment Not on file documented as of this encounter Visit Diagnoses Not on filedocumented in this encounter Care Teams Service And Repair Supervisor Relationship Specialty Start Date End Date Dion Quezada MD PCP - General 12/12/10 10/06/16 Dilshad Costa MD PCP - General Pediatrics 10/07/16 12/29/18 Lucina Oglesby DO PCP - General Pediatrics 12/30/18 01/30/22 Tg Robison FNP [address] [place] [id number] PCP - General Pediatrics 01/31/22 07/14/23 Adriana Fernández MD [address] [place] [id number] PCP - General Internal Medicine 07/15/23 documented as of this encounter
--- OUTSIDE RECORDS SUMMARY | 2025-05-18 19:56 | XMS_ITS | Clinical Summary ---
Author Organization [facility] Address [address] [place] [address] Care Team Providers Care Clinical Support Specialist Name Role Phone Adriana Fernández MD Primary Care Provider [phone] Allergies No known active allergies Medications No known medications Active Problems Problem Noted Date Chlamydia infection 03/19/2022 Overview: 03/2022: treated with azithromycin Depression 01/25/2021 Overview: 01/2021: PHQ9 -10. 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 Wants to start medications but needed to go to work, will f/u for telehealth Adolescent idiopathic scoliosis 06/02/20 Overview: Significant per xray; referred to [facility]; dad aware (dad has legal custody) 06/20:seen by arturo; was eligible per xray for bracing but skelatally matured;, will monitor and see again in a yr; no restrictions Behavior causing concern in biological c hild 06/02/2018 Overview: Needs eval for adhd; was given [facility] 06/02/18 for completion and then schedule with pcp; Substance abuse 11/06/2017 Overview: Crisis intervention 11/18. Agitation, using marijuana and etoh. Referred for f/u to [facility]. 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 11/22/2009 Immunizations Name Administration Dates Next Due DTaP 11/22/2009,05/14/2007 Gardasil 9 (Hpv) 06/02/2018,11/24/2016 HIB 04/20/2006, 6,05/02/2005,02/28 Influenza (6-35 months) 05/14/2007 Influenza (>6 Months) Split Preservative Free 06/02/2018 MMR ([id number]) 12/22/2011, 6 Meningococcal (Menactra) 03/18/2022,11/24/2016 PEDIARIX(DTAP-HEP B-IPV) 10/14/2005,05/02/2005,0 02/28/2005 Pneumococcal Conjugate PCV-13 11/22/2009 Pneumococcal(Pedi) Conjugate PCV-7 04/20,10/14/2005,05/02/2005,02/28 Polio (IPV) 11/22/2009 Tdap 11/24/2016 Varicella 12/22/2011,01/29/2006 Family History Medical History Relation Name Comments ADHD Brother Other Father's side alzheimers 90s scoliosis Mother was braced Relation Name Status Comments Brother Alive herbert aldana meg naik 11-14-2002 Father Alive herbert aldana 1 [phone] unemployed [employer] worker Father's side Mother Alive [facility] cashier Social History Tobacco Use Types Packs/Day Years Used Date Smoking Tobacco: Never Smokeless Tobacco: Never Comments:grandmother smokes Alcohol Use Standard Drinks/Week Comments Not Asked 0 (1 standard drink = 0.6 oz pur e alcohol) Sex Assigned at Date Recorded Not on file Job Start Date Occupation Industry Not on file Not on file Not on file Last Filed Vital Signs Vital Sign Reading Time Taken Comments Blood Pressure 118/68 03/18/2022 2:02 PM EDT Pulse 78 03/18/2022 2:02 PM EDT Temperature 36.1 C (97 F) 03/18/2022 2:02 PM EDT Respiratory Rate 16 06/02/2018 1:50 PM EDT Oxygen Saturation - - Inhaled Oxygen Concentration - - Weight 48.7 kg (107 lb 6.4 oz) 03/18/2022 2:02 P M EDT Height 155.5 cm (5' 1.22 ) 03/18/2022 2:02 PM ED T Body Mass Index 20.15 03/18/2022 2:02 PM EDT Plan of Treatment Health Maintenance Due Date Last Done Comments Covid-19 Vaccine (#1) 06/27/2005 TOBACCO CHECK/ADVISE 2022 GONORRHEA & CHLAMYDIA SCREENING 03/18/2023 , 01/25/2021 BASELINE HEALTH EXAM 18-39 12/26/2023 BMI CHECK/ADVISE 08/03/2024 06/02/2018, , 11/24/2016, Additional history exists DEPRESSION SCREENING/FOLLOWUP 08/03/2024, 03/18/2022, 01/25/2021, Additional history exists SOCIAL NEEDS SCREENING 08/03/2024 03/18/2022, 2020 CHOLESTEROL SCREENING 2024 INFLUENZA (#1) 2025 06/02/2018, 05/14/2007 DTAP/TDAP/TD (7 - Td or Tdap) 11/24/2026, 11/22/2009, 05/14/2007, Additional history exists PNEUMOCOCCAL VACCINE FOR HIG H RISK PATIENTS (#1) 2069 11/22/2009 HUMAN PAPILLOMAVIRUS (HPV) Completed 06/02/2018, Care Teams Clinical Support Specialist Relationship Specialty Start Date End Date Adriana Fernández MD [address] [place] [id number] PCP - General Internal Medicine 07/15/23
--- OUTSIDE RECORDS SUMMARY | 2025-05-18 19:56 | XMS_ITS ---
Author Name [facility] Organization Unknown Care Team Organization Name Specialty Phone Email Start Date End Da te [facility] Agnes Primary [facility] 04/09/2023 03/21/2024 [facility] Tg Robison Primary Care 10/08/20222023 [facility] Dimitry Marie Primary Care 06/10/20222023
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
--- OUTSIDE RECORDS SUMMARY | 2025-05-18 19:56 | XMS_ITS | Encounter Summary ---
Author Organization [employer] Address [address] [facility] 7[address] [place] [address] Care Team Providers Care Corporate Trainer Name Role Phone Unavailable Primary Care Provider Unavailabl e Reason for Visit * Reason Onset Date Comments New Patient 04/14/2023 Encounter Details Date Type Department Care Team (Late st Contact Info) Description 04/14/2023 Telephone [facility] [address] [place] [address] Babak Rico MD [address] [place] [address] New Patient Social History Tobacco Use Types [...] left voicemail to give a call at [phone]. documented in this encounter Plan of Treatment Not on file documented as of this encounter Visit Diagnoses Not on filedocumented in this encounter
--- OUTSIDE RECORDS SUMMARY | 2025-05-18 19:56 | XMS_ITS | Clinical Summary ---
Author Organization [employer] Address [address] [place] [address] Care Team Providers Care Passenger Solicitor Name Role Phone Unavailable Primary Care Provider Unavailabl e Immunizations Immunization Administration Dates Next Due DTaP 11/22/2009,05/14/2007 DTaP / Hep B / IPV 10/14/2005,05/02/2005, 005 DTaP / HiB / IPV 04/20/2006, 6,05/02/2005,02/28 HPV 9-Valent 06/02/2018,11/24/2016 IPV 11/22/2009 Influenza, IIV3, injectable 05/14/2007 Influenza, seasonal, injecta ble, preservative free 06/02/2018 MMR 12/22/2011,01/29/2006 Meningococcal MCV4P [id number]-135 03/18/2022,11/25/19 17 Pfizer Covid-19 Vaccine 12+ 11/18/2024 Pneumococcal Conjugate PCV 13 11/22/2009 Pneumococcal Conjugate PCV 7 04/20/2006, 10/14/2005,05/02/2005,02/28 Tdap 11/24/2016 Varicella 12/22/2011,01/29/2006 Social History Tobacco Use Types Packs/Day Years Used Date Smoking Tobacco: Never Assessed Comments Unknown Sex and Gender Information Value Date Recorded Sex Assigned at Female 11/18/2024 11:26 AM EDT Legal Sex Female 11:32 AM EDT Gender Identity Female 11/18/2024 11:26 AM EDT Sexual Orientation Straight 11/18/2024 11 :26 AM EDT Plan of Treatment Health Maintenance Due Date Last Done Comments Chlamydia and Gonorrhea Screening 2004 Depression Screening 2004 HIV Screening 2004 SDOH Screening 2004 Disability Screening 2004 Alcohol/Substance Use Screening 2016 Tobacco Screening 2016 Family Planning (PISQ) 12/26/2019 Meningococcal B Vaccine (1 of 2 - Standard) 2020 Hepatitis C Screening 2022 Influenza Vaccine (#1) 2025 06/02/2018, 2006 DTaP/Tdap/Td Vaccines (7 - Td or Tdap) 11/24/2026 11/24/2016, 11/22/2009, 05/14/2007, Additional history exists Zoster Vaccines (1 of 2) 2054 RSV Patients and Patients Aged 60 years or older (1 - 1-dose 75+ series) 12/26/2079 Hepatitis B Vaccines Completed 10/14/2005, 05/02/2005, 02/28/2005 HIB Vaccines Completed 04/20/2006, 10/01, 05/02/2005, Additional history exists IPV Vaccines Completed 11/22/2009, 04/03, 10/14/2005, Additional history exists Pneumococcal Vaccine: Pediatrics (0 to 5 Years) and At-Risk Patients (6 to 49) Years Completed 11/22/2009, 04/20/2006, 10/14/2005, Additional history exists HPV Vaccines Completed 06/02/2018, 11/24/2016 Meningococcal Vaccine Completed 03/18/2022, 017 COVID-19 Vaccine Completed 11/18/2024 Hepatitis A Vaccines Aged Out No long er eligible based on patient's age to complete this topic RSV under 20 months Aged Out No longe r eligible based on patient's age to complete this topic Rotavirus Vaccines Aged Out No longer eligible based on patient's age to complete this topic Insurance [facility] STANDARD
--- OUTSIDE RECORDS SUMMARY | 2025-05-18 19:57 | XMS_ITS | Encounter Summary ---
Author Organization [facility] Address [address] [place] [address] Care Team Providers Care Form Presser Name Role Phone Dion Quezada MD Primary Care Provider Dilshad Chase MD Primary Care Provider Lucina Conklin DO Primary Care Provider Unav Tg Trujillo Primary Care Provider [phone] Adriana Fernández MD Primary Care Provider Reason for Visit * Reason Onset Date Comments DCF 05/08/2015 Encounter Details Date Type Department Care Team Description 05/08/2015 Telephone Pediatrics - [address] [address] Dion Quezada MD [facility] Social History Tobacco Use Types Packs/Day Years [...] Telephone Encounter - Kenia Ramos L.P.N. - 05/08/2015 9:51 AM EDT Information given on last PE and imms. Up to date on imms. No concerns. Now in Dad's custody. FYI. * Telephone Encounter - Taty Suggs - 05/08/2015 9:31 AM EDT Name and title of caller: Jes Garcia [place] office : 2005 Age: 9 yr. Is this an active 51A case: Yes. Case is currently active. Message forwarded to nurse to provide information. Message forwarded to nurse for follow up documented in this encounter Plan of Treatment Not on file documented as of this encounter Visit Diagnoses Not on filedocumented in this encounter Care Teams Form Presser Relationship Specialty Start Date End Date Dion Quezada MD PCP - General 12/12/10 10/06/16 Dilshad Costa MD PCP - General Pediatrics 10/07/16 12/29/18 Lucina Oglesby DO PCP - General Pediatrics 12/30/18 01/30/22 Tg Robison FNP [address] [place] [address] PCP - General Pediatrics 01/31/22 07/14/23 Adriana Fernández MD [address] [place] [address] PCP - General Internal Medicine 07/15/23 documented as of this encounter
--- OUTSIDE RECORDS SUMMARY | 2025-05-18 19:57 | XMS_ITS | Encounter Summary ---
Author Organization [facility] Address [address] [place] [address] Care Team Providers Care School Custodian Name Role Phone Dion Quezada MD Primary Care Provider Dilshad Chase MD Primary Care Provider Lucina Conklin DO Primary Care Provider Unav Tg Trujillo Primary Care Provider [phone] Adriana Fernández MD Primary Care Provider [phone] Reason for Visit * Reason Onset Date Comments DCF 07/01/2016 Encounter Details Date Type Department Care Team Description 07/01/2016 Telephone Pediatrics - [address] [address] Dion Quezada MD [facility] Social History Tobacco Use Types Packs/Day Years Used Date Smoking Tobacco: Never Alcohol Use Standard Drinks/Week Comments Not Asked 0 (1 standard drink = 0.6 oz pur e alcohol) Sex Assigned at Date Recorded Not on file Job Start Date Occupation Industry Not on file Not on file Not on file documented as of this encounter Miscellaneous Notes * Telephone Encounter - Alvina Calderon R.N. - 07/04/2016 1:41 PM EST Information on last pe and need for appt -fyi * Telephone Encounter - Alvina Calderon R.N. - 07/02/2016 2:38 PM EST Left message * Telephone Encounter - Erin Reina L.P.N. - 07/01/2016 1:41 PM EST Left message to return call. * Telephone Encounter - Mariely Mckenzie - 07/01/2016 1:09 PM EST Name and title of caller: Marisol from [facility]- release being sent over : 2005 Age: 10 yr. Is this an active 51A case: Yes. Case is currently active. Message forwarded to nurse to provide information. Message forwarded to nurse for follow up documented in this encounter Plan of Treatment Not on file documented as of this encounter Visit Diagnoses Not on filedocumented in this encounter Care Teams School Custodian Relationship Specialty Start Date End Date Dion Quezada MD PCP - General 12/12/10 10/06/16 Dilshad Costa MD PCP - General Pediatrics 10/07/16 12/29/18 Lucina Oglesby DO PCP - General Pediatrics 12/30/18 01/30/22 Tg Robison FNP [address] [place] [address] PCP - General Pediatrics 01/31/22 07/14/23 Adriana Fernández MD [address] [place] [address] PCP - General Internal Medicine 07/15/23 documented as of this encounter
--- OUTSIDE RECORDS SUMMARY | 2025-05-18 19:57 | XMS_ITS | Encounter Summary ---
Author Organization [facility] Address [address] [place] [address] Care Team Providers Care Roller Varnisher Name Role Phone Dion Quezada MD Primary Care Provider Dilshad Chase MD Primary Care Provider Lucina Conklin DO Primary Care Provider Unav Tg Trujillo Primary Care Provider [phone] Adriana Fernández MD Primary Care Provider Reason for Visit * Reason Onset Date Comments DCF 04/17/2011 Encounter Details Date Type Department Care Team Description 04/17/2011 Telephone Pediatrics - [address] [address] Dion Quezada MD [facility] Social History Tobacco Use Types Packs/Day Years [...] Telephone Encounter - Alvina Calderon R.N. - 04/17/2011 10:25 AM EDT Information given on no shows, cancels and need for pe-fyi * Telephone Encounter - Margaret Clark L.P.N. - 04/17/2011 10:20 AM EDT Message left to call the office prior to 5 pm * Telephone Encounter - Lillian Lou - 04/17/2011 10:16 AM EDT Name and title of caller: Vinicio Ceballos - [facility]cf : 2005 Age: 5 yr. Is this an active 51A case: Yes. Case is currently active. Message forwarded to nurse to provide information. Message forwarded to nurse for follow up documented in this encounter Plan of Treatment Not on file documented as of this encounter Visit Diagnoses Not on filedocumented in this encounter Care Teams Roller Varnisher Relationship Specialty Start Date End Date Dion Quezada MD PCP - General 12/12/10 10/06/16 Dilshad Costa MD PCP - General Pediatrics 10/07/16 12/29/18 Lucina Oglesby DO PCP - General Pediatrics 12/30/18 01/30/22 Tg Robison FNP [address] [place] [address] PCP - General Pediatrics 01/31/22 07/14/23 Adriana Fernández MD [address] [place] [address] PCP - General Internal Medicine 07/15/23 documented as of this encounter
--- OUTSIDE RECORDS SUMMARY | 2025-05-18 19:57 | XMS_ITS | Encounter Summary ---
Author Organization [facility] Address [address] [place] [address] Care Team Providers Care Director Of Content And Programming Name Role Phone Dion Quezada MD Primary Care Provider Dilshad Chase MD Primary Care Provider Lucina Conklin DO Primary Care Provider Unav Tg Trujillo Primary Care Provider [phone] Adriana Fernández MD Primary Care Provider [phone] Reason for Visit * Reason Onset Date Comments DCF 05/20/2012 Encounter Details Date Type Department Care Team Description 05/20/2012 Telephone Pediatrics - [address] [address] Dion Quezada MD [facility] Social History Tobacco Use Types Packs/Day Years Used Date Smoking Tobacco: Never Alcohol Use Standard Drinks/Week Comments Not Asked 0 (1 standard drink = 0.6 oz pur e alcohol) Sex Assigned at Date Recorded Not on file Job Start Date Occupation Industry Not on file Not on file Not on file documented as of this encounter Miscellaneous Notes * Telephone Encounter - Lulú Barbour L.P.N. - 05/20/2012 2:37 PM EDT FYI Last [facility] 11/22/09, imms are up to date, 3 no shows in 2010 * Telephone Encounter - Maria T Fuentes - 05/20/2012 2:19 PM EDT Name and title of caller: Guera Villar [phone] : 2005 Age: 6 yr. Is this an active 51A case: Yes. Case is currently active. Message forwarded to nurse to provide information. Message forwarded to nurse for follow up documented in this encounter Plan of Treatment Not on file documented as of this encounter Visit Diagnoses Not on filedocumented in this encounter Care Teams Director Of Content And Programming Relationship Specialty Start Date End Date Dion Quezada MD PCP - General 12/12/10 10/06/16 Dilshad Costa MD PCP - General Pediatrics 10/07/16 12/29/18 Lucina Oglesby DO PCP - General Pediatrics 12/30/18 01/30/22 Tg Robison FNP [address] [place] [id number] PCP - General Pediatrics 01/31/22 07/14/23 Adriana Fernández MD [address] [place] [address] PCP - General Internal Medicine 07/15/23 documented as of this encounter
[2025-05-18 22:22] VITALS: BP 127/58; PULSE 84; RESP 16; TEMP 36.7; O2SAT 100
[2025-05-19 05:01] LABS: Bacterial Vaginosis PCR NEGATIVE (Negative); Candida Group PCR DETECTED (Not Detect); Candida glab krusei PCR NOT DETECTED (Not Detect); Trichomonas vaginalis PCR NOT DETECTED (Not Detect)
[2025-05-19 05:33] LABS: CT PCR NOT DETECTED (Not Detect.); NG PCR NOT DETECTED (Not Detect.)
== END 2025-05-18 22:28 | disposition home or self-care (01) ==
PROVIDERS: Physician Assistant; Emergency Provider Emergency Medicine
DX: B37.31 Acute candidiasis of vulva and vagina (principal); R10.9 Unspecified abdominal pain; M54.50 Low back pain, unspecified; R51.9 Headache, unspecified; Z11.3 Encounter for screening for infections with a predominantly sexual mode of transmission
CPT/HCPCS: 36415; 80053; 81001; 81025; 81515; 84702; 85025; 87491; 87591; 99283; 99284

== ENCOUNTER 2025-06-03 17:05 | Emergency (ER) | payer OTHER, SELFPAY ==
[2025-06-03 17:28] VITALS: BP 116/70; PULSE 89; RESP 18; TEMP 36.7; O2SAT 100; BMI 17.9
--- NOTE | 2025-06-03 17:28 | ED.FEMALEGU ---
HPI - Female Genitourinary General Chief complaint: General Medical Stated complaint: vaginal issues Time Seen by Provider: 06/03/25 20:03 Source: patient Limitations: no limitations History of Present Illness ED Provider: Dee Muñoz PA-C HPI Narrative: 19-year-old female presents with a concern for STD exposure. Patient states she has been in a long-term relationship with the same partner, she is quite aware that he has other sexual encounters with other women outside their relationship. Patient developed a war along left inner thigh, she was seen at urgent Care, they were concerned for HPV. Patient received testing for all sexually transmitted diseases at urgent Care, she was found to have BV, they initiated treatment. Patient is here requesting HPV testing. Denies other genital lesions, pelvic pain, nausea, vomiting, back pain, dysuria or fever. Related Data Previous Rx's ?Medication ?Instructions ?Recorded amoxicillin 875 mg tablet 875 mg PO BID Bacterial 12/10/21 pharyngitis 10 days #20 tabs cefdinir 300 mg capsule 300 mg PO BID 7 days #14 caps 02/27/23 doxycycline hyclate 100 mg tablet 100 mg PO BID 7 days #14 tabs 02/27/23 fluconazole 150 mg tablet 150 mg PO Q3D 2 doses #2 tabs 02/27/23 (Diflucan) metronidazole 500 mg tablet 500 mg PO BID 7 days #14 tabs 02/27/23 miconazole nitrate 4 % (200 mg)-2 1 supp vaginal BEDTIME 3 days #24 04/06/24 % (9 gram)vaginal,prefill grams appl,cream cephalexin 500 mg capsule 500 mg PO QID 7 days #28 caps 05/08/24 doxycycline hyclate 100 mg capsule 100 mg PO BID 7 days #14 caps 05/08/24 metronidazole 500 mg tablet 500 mg PO BID 7 days #14 tabs 05/10/24 levofloxacin 250 mg tablet 250 mg PO DAILY 3 days #3 tabs 05/25/24 metronidazole 500 mg tablet 500 mg PO Q12H 7 days #14 tabs 05/25/24 cyclobenzaprine 5 mg tablet 5 mg PO BEDTIME PRN muscle spasm 01/26/25 #10 tabs lidocaine 5 % topical patch 1 patch topical DAILY #15 ea 01/26/25 naproxen 500 mg tablet (Naprosyn) 500 mg PO BID PRN PAIN #20 tabs 03/12/25 sulfamethoxazole 800 1 tab PO BID #14 tabs 03/12/25 mg-trimethoprim 160 mg tablet (Bactrim DS) fluconazole 150 mg tablet 150 mg PO DAILY 1 dose #1 tab 05/18/25 Allergies Allergy/AdvReac Type Severity Reaction Status Date / Time No Known Allergies (No Known Allergy Verified 06/03/25 17:29 Allergies*) Review of Systems Review of Systems: Yes all other systems are reviewed and are negative Constitutional: Constitutional: Denies fatigue and Denies fever(s) Cardiovascular: Cardiovascular: Denies chest pain and Denies dyspnea Respiratory: Respiratory: Denies dyspnea Gastrointestinal: Gastrointestinal: Denies abdominal pain, Denies nausea and Denies vomiting Genitourinary: Genitourinary: Denies genital pruritis, Denies genital lesions, Denies dysuria, Denies pelvic pain, Denies flank pain, Reports vaginal discharge, Reports vaginal odor and Denies vaginal pruritus Musculoskeletal: Musculoskeletal: Denies back pain Endocrine: Endocrine: Denies fatigue PMF Past Medical History Medical History No known health problems Social History Social History Patient Tobacco Use Status: Never used Tobacco Advance Directives: No Advance Directives Information Provided: No Do you have a plan to hurt others: No Plan Physical Exam Vital Signs: Vital Signs: Last Vital Signs Temp 98.1 F 06/03/25 17:28 Pulse 89 06/03/25 17:28 Resp 18 06/03/25 17:28 BP 116/70 06/03/25 17:28 Pulse Ox 100 06/03/25 17:28 O2 Del Method Room Air 06/03/25 17:28 BMI result Body Mass Index 17.9 Const: Other: Alert, tearful, anxious Orientation/consciousness: patient oriented x3 Resp: Effort & Inspection: normal respiratory effort Cardio: Other: Normal peripheral perfusion : Other: Normal external genitalia, 1 isolated raised wart like lesion along left inner thigh, no additional lesions over perineum Skin: Other: Warm dry no rash Neuro: General: patient oriented x3, gait normal, no focal motor deficits and CN's II-XI intact bilaterally Psych: Other: Cooperative, anxious Course Course Course Narrative: This is a Rapid Medical Exam performed in triage by Michelle Edwards PA-C. Full HPI, ROS and PE to be performed by primary ED provider. 19 yo F presenting to the ED c/o painful bump / ?wart between buttocks - was seen at yesterday and Rx Doxycycline. Admits to vaginal d/c. denies bleeding. States she wants to make sure she is clean PE: tearful, area not examined in triage Plan: UA, STI testing Medical Decision Making Medical Decision Making [facility] Narrative: 19-year-old female presents with a concern for STD exposure. Patient states she has been in a long-term relationship with the same partner, she is quite aware that he has other sexual encounters with other women outside their relationship. Patient developed a war along left inner thigh, she was seen at urgent Care, they were concerned for HPV. Patient received testing for all sexually transmitted diseases at urgent Care, she was found to have BV, they initiated treatment. Patient is here requesting HPV testing. Denies other genital lesions, pelvic pain, nausea, vomiting, back pain, dysuria or fever. Problem: Potential STD exposure History: Per patient I have considered the following differential diagnoses: HPV lesion, folliculitis, herpetic lesion, syphilis canker, verruca Plan: I explained to the patient that she should have a Pap smear, she has seen at [facility], she understands she can make an appointment on Thursday. It is reassuring that there are no other lesions visible, I did explain to her that she could have a different form of wart. She verbalizes understanding, at this point urine and UA pending, they did not screened for potential UTI, she denies any urinary symptoms at this time. I have independently reviewed the following tests: Labs: Not , urine not infected Differential Diagnosis Differential Diagnoses: The differential diagnosis associated with the presentation includes See medical decision-making Admission/Observation Consideration of admission/observation: Escalation of care including admission/observation considered Not applicable Lab Data [facility] Lab Attestation statement: I reviewed the patient's lab results. Labs: Lab Results 06/03/25 06/03/25 Range/Units 20:15 20:16 Urine Color Yellow Urine Appearance Clear Urine pH 6.5 (5.0-9.0) Ur Specific Graham 1.015 (1.005-1.025) Urine Protein Negative (Neg-Trace) mg/dL Urine Glucose (UA) Negative (Negative) mg/dL Urine Ketones Negative (Negative) mg/dL Urine Blood Negative (Negative) Urine Nitrite Negative (Negative) Ur Leukocyte Esterase Negative (Negative) Urine Test NEGATIVE (NEGATIVE) Discharge Plan Discharge Clinical Impression: Possible exposure to STD Patient Disposition: Home, Self-Care Additional Instructions: Your urine is not infected, you are not . In regard to the lesion of the inner thigh, this could be a different kind of a wart, not necessarily HPV. As we discussed, you require a Pap smear and testing, reach out to the [facility] clinic you are seen at, and make an appointment. Prescriptions: No Action amoxicillin 875 mg tablet 875 mg PO BID 10 Days Qty: 20 0RF fluconazole 150 mg tablet 150 mg PO DAILY Qty: 1 0RF Rx Instructions: administer on day 1 of therapy metronidazole 500 mg tablet 500 mg PO BID 7 Days Qty: 14 0RF cefdinir 300 mg capsule 300 mg PO BID 7 Days Qty: 14 0RF doxycycline hyclate 100 mg tablet 100 mg PO BID 7 Days Qty: 14 0RF fluconazole [Diflucan] 150 mg tablet 150 mg PO Q3D Qty: 2 0RF miconazole nitrate 4 % (200 mg)- 2 % (9 gram) comb pack,prefill appl, cream 1 supp vaginal BEDTIME 3 Days Qty: 24 0RF cephalexin 500 mg capsule 500 mg PO QID 7 Days Qty: 28 0RF doxycycline hyclate 100 mg capsule 100 mg PO BID 7 Days Qty: 14 0RF metronidazole 500 mg tablet 500 mg PO BID 7 Days Qty: 14 0RF metronidazole 500 mg tablet 500 mg PO Q12H 7 Days Qty: 14 0RF levofloxacin 250 mg tablet 250 mg PO DAILY 3 Days Qty: 3 0RF lidocaine 5 % adhesive patch,medicated 1 patch topical DAILY Qty: 15 0RF Rx Instructions: leave on most painful area for up to 12 hrs cyclobenzaprine 5 mg tablet 5 mg PO BEDTIME PRN (Reason: muscle spasm) Qty: 10 0RF sulfamethoxazole-trimethoprim [Bactrim DS] 800-160 mg tablet 1 tab PO BID Qty: 14 0RF naproxen [Naprosyn] 500 mg tablet 500 mg PO BID PRN (Reason: PAIN) Qty: 20 0RF Print Language: Hebrew
--- OUTSIDE RECORDS SUMMARY | 2025-06-03 20:01 | XMS_ITS | Encounter Summary ---
Author Organization [facility] Address [address] [place] [address] Care Team Providers Care Process Analyst Name Role Phone Dion Quezada MD Primary Care Provider Dilshad Chase MD Primary Care Provider Lucina Conklin DO Primary Care Provider Unav Tg Trujillo Primary Care Provider [phone] Adriana Fernández MD Primary Care Provider [phone] Reason for Visit * Reason Onset Date Comments DCF 02/21/2015 Encounter Details Date Type Department Care Team Description 02/21/2015 Telephone Pediatrics - [address] [address] Dion Quezada MD [facility] Social History Tobacco Use Types Packs/Day [...] on filedocumented in this encounter Care Teams Process Analyst Relationship Specialty Start Date End Date Dion Quezada MD PCP - General 12/12/10 10/06/16 Dilshad Costa MD PCP - General Pediatrics 10/07/16 12/29/18 Lucina Oglesby DO PCP - General Pediatrics 12/30/18 01/30/22 Tg Robison FNP [address] [place] [id number] PCP - General Pediatrics 01/31/22 07/14/23 Adriana Fernández MD [address] [place] [id number] PCP - General Internal Medicine 07/15/23 documented as of this encounter
--- OUTSIDE RECORDS SUMMARY | 2025-06-03 20:01 | XMS_ITS | Clinical Summary ---
Author Organization [facility] [address] [facility] Address [address] [place] [address] Phone Care Team Providers Care Business Instructor Name Role Phone Marbin Toussaint MD Primary [...] (08/07/2024): Needs eval for adhd; was given [facility] 06/02/18 for completion and then schedule with pcp; Substance abuse ([facility] V24, [facility] V28) 11/06 Overview (08/07/2024): Crisis intervention 11/18. Agitation, using marijuana and etoh. Referred for f/u to [facility]. 01/2021: denies further use Encounters Date Type Department Care Team Description 04/21/2025 Telephone Adult Medicine [address] [phone] Marbin Toussaint MD 03/31/2025 Telephone Adult Medicine [address] [address] Gracie Nova [place] 03/23/2025 1:00 PM EDT Office Visit Adult [address] [phone] Marbin Toussaint MD Annual physical exam (Primary Dx); Vaginal cyst; Blurry vision 03/10/2025 Telephone Adult Medicine [address] [phone] Marbin Toussaint MD from Last 3 Months Immunizations Immunization Administration Dates Next Due DTaP (Infanrix) 6wks to less than 7yo 11/22/2009 ,05/14/2007 [id number] (Pentacel) 2mo to less than 5yo 04/20/2006,10/14/2005,05/02/2005,02/28 [id number] (Pediarix) 6 w ks to less than [...] Father Alive herbert aldana 1 985 unemployed [employer] worker Father's side Mother Alive [facility] Social History Tobacco Use Types Packs/Day Years [...] 4:00 PM EDT Office Visit Adult Medicine [address] [address] Marbin Toussaint MD [address] [place] [address] 03/27/2026 8:00 AM EDT Office Visit [address] [address] Marbin Toussaint MD [address] [place] [address] Health Maintenance Due Date Last Done Comments [...] Gonorrhea/Chlamydia Screening (03/18/2022) Gonorrhea/Chla mydia Screening abstracted [facility] Provider MD HEALTH MAINTENANCE Final Result from Last 3 Months or Most Recently Relevant to Health Maintenance Insurance [facility] [facility] Care Teams Business Instructor Relationship Specialty Start Date End Date Marbin Toussaint MD [address] [place] [address] PCP - General Internal Medicine 11/30/24
--- OUTSIDE RECORDS SUMMARY | 2025-06-03 20:01 | XMS_ITS | Encounter Summary ---
Author Organization [facility] Address [address] [place] [address] Care Team Providers Care Personal Computer Network Analyst Name Role Phone Dion Quezada MD Primary Care Provider Dilshad Chase MD Primary Care Provider Unavailab Lucina Dominguez DO Primary Care Provider Unav ailable Tg Robison Primary Care Provider [phone] Adriana Fernández MD Primary Care Provider [phone] Encounter Details Date Type Department Care Team Description 07/07/2016 [facility] Medical Records [address] [place] [address] Abstract, Provider Social History Tobacco Use Types Packs/Day Years Used Date Smoking Tobacco: Never Alcohol Use Standard Drinks/Week Comments Not Asked 0 (1 standard drink = 0.6 oz pur e alcohol) Sex Assigned at Date Recorded Not on file Job Start Date Occupation Industry Not on file Not on file Not on file documented as of this encounter Plan of Treatment Not on file documented as of this encounter Visit Diagnoses Not on filedocumented in this encounter Care Teams Personal Computer Network Analyst Relationship Specialty Start Date End Date Dion Quezada MD PCP - General 12/12/10 10/06/16 Dilshad Costa MD PCP - General Pediatrics 10/07/16 12/29/18 Lucina Oglesby DO PCP - General Pediatrics 12/30/18 01/30/22 Tg Robison FNP [address] [place] [address] PCP - General Pediatrics 01/31/22 07/14/23 Adriana Fernández MD [address] [place] [id number] PCP - General Internal Medicine 07/15/23 documented as of this encounter
--- OUTSIDE RECORDS SUMMARY | 2025-06-03 20:01 | XMS_ITS | Encounter Summary ---
Author Organization [facility] Address [address] [place] [address] Care Team Providers Care Fire Control Technician B Name Role Phone Dion Quezada MD Primary Care Provider Dilshad Chase MD Primary Care Provider Lucina Conklin DO Primary Care Provider Unav Tg Trujillo Primary Care Provider [phone] Adriana Fernández MD Primary Care Provider [phone] Reason for Visit * Reason Onset Date Comments DCF 05/18/2012 Encounter Details Date Type Department Care Team Description 05/18/2012 Telephone Pediatrics - [address] [address] Dion Quezada MD [facility] Social History Tobacco Use Types Packs/Day [...] Telephone Encounter - Alvina Calderon R.N. - 05/18/2012 11:28 AM EDT Family has moved back to [facility] so DCF following up on what is needed for child. Need for pe-fyi * Telephone Encounter - Lillian Dasha - 05/18/2012 11:22 AM EDT Name and title of caller: Margarita Mckeon : 2005 Age: 6 yr. Is this an active 51A case: Yes. Case is currently active. Message forwarded to nurse to provide information. Message forwarded to nurse for follow up documented in this encounter Plan of Treatment Not on file documented as of this encounter Visit Diagnoses Not on filedocumented in this encounter Care Teams Fire Control Technician B Relationship Specialty Start Date End Date Dion Quezada MD PCP - General 12/12/10 10/06/16 Dilshad Costa MD PCP - General Pediatrics 10/07/16 12/29/18 Lucina Oglesby DO PCP - General Pediatrics 12/30/18 01/30/22 Tg Robison FNP [address] [place] [id number] PCP - General Pediatrics 01/31/22 07/14/23 Adriana Fernández MD [address] [place] [address] [id number] PCP - General Internal Medicine 07/15/23 documented as of this encounter
--- OUTSIDE RECORDS SUMMARY | 2025-06-03 20:01 | XMS_ITS | Encounter Summary ---
Author Organization [facility] Address [address] [place] [address] Care Team Providers Care Sliver Machine Operator Name Role Phone Dion Quezada MD Primary Care Provider Dilshad Chase MD Primary Care Provider Lucina Conklin DO Primary Care Provider Unav Tg Truijllo Primary Care Provider [phone] Adriana Fernández MD Primary Care Provider [phone] Reason for Visit * Reason Onset Date Comments DCF 05/20/2012 Encounter Details Date Type Department Care Team Description 05/20/2012 Telephone Pediatrics - [address] [address] Dion Quezada MD [facility] Social History Tobacco Use Types [...] - 05/20/2012 2:37 PM EDT FYI Last [facility] 11/22/09, imms are up to date, 3 no shows in 2010 * Telephone Encounter - Maria T Fuentes - 05/20/2012 2:19 PM EDT Name and title of caller: Guera Villar [phone] : 2005 Age: 6 yr. Is this an active 51A case: Yes. Case is currently active. Message forwarded to nurse to provide information. Message forwarded to nurse for follow up documented in this encounter Plan of Treatment Not on file documented as of this encounter Visit Diagnoses Not on filedocumented in this encounter Care Teams Sliver Machine Operator Relationship Specialty Start Date End Date Dion Quezada MD PCP - General 12/12/10 10/06/16 Dilshad Costa MD PCP - General Pediatrics 10/07/16 12/29/18 Lucina Oglesby DO PCP - General Pediatrics 12/30/18 01/30/22 Tg Robison FNP [address] [place] [id number] PCP - General Pediatrics 01/31/22 07/14/23 Adriana Fernández MD [address] [place] [id number] PCP - General Internal Medicine 07/15/23 documented as of this encounter
--- OUTSIDE RECORDS SUMMARY | 2025-06-03 20:01 | XMS_ITS | Encounter Summary ---
Author Organization [facility] Address [address] [place] [address] Care Team Providers Care Camp Attendant Name Role Phone Dilshad Costa MD Primary Care Provider Unavailab le Lucina Oglesby DO Primary Care Provider Unav ailable Tg Robison Primary Care Provider [phone] Adriana Fernández MD Primary Care Provider [phone] Encounter Details Date Type Department Care Team Description 06/28/2018 Hospital Medical Records [address] [place] [address] Dilshad Sorto MD Social History Tobacco Use Types Packs/Day Years [...] on filedocumented in this encounter Care Teams Camp Attendant Relationship Specialty Start Date End Date Dilshad Costa MD PCP - General Pediatrics 10/07/16 12/29/18 Lucina Oglesby DO PCP - General Pediatrics 12/30/18 01/30/22 Tg Robison FNP [address] [place] [id number] PCP - General Pediatrics 01/31/22 07/14/23 Adriana Fernández MD [address] [place] [address] [id number] PCP - General Internal Medicine 07/15/23 documented as of this encounter
--- OUTSIDE RECORDS SUMMARY | 2025-06-03 20:01 | XMS_ITS | Encounter Summary ---
Author Organization [facility] Address [address] [place] [address] Care Team Providers Care Technology Infusion Specialist Name Role Phone Dion Quezada MD Primary Care Provider Dilshad Chase MD Primary Care Provider Lucina Conklin DO Primary Care Provider Unav Tg Trujillo Primary Care Provider [phone] Adriana Fernández MD Primary Care Provider [phone] Reason for Visit * Reason Onset Date Comments [facility] 03/07/2016 Encounter Details Date Type Department Care Team Description 03/07/2016 Telephone Pediatrics - [address] [address] Dion Quezada MD [facility] Social History Tobacco Use Types Packs/Day Years Used Date Smoking Tobacco: Never Alcohol Use Standard Drinks/Week Comments Not Asked 0 (1 standard drink = 0.6 oz pur e alcohol) Sex Assigned at Date Recorded Not on file Job Start Date Occupation Industry Not on file Not on file Not on file documented as of this encounter Miscellaneous Notes * Telephone Encounter - Josesito Naylor L.P.N. - 03/07/2016 2:00 PM EDT Chart reviewed , Pt behind on PE, Marisol will have Dad schedule a PE. * Telephone Encounter - Maria T Shree - 03/07/2016 1:51 PM EDT Name and title of caller: Marisol from [facility] : 2005 Age: 10 yr. Is this an active 51A case: No. Case is not currently active. Caller has been asked for a signed, release of information authorization. Caller given [facility] fax number. Name of person to contact when release is received by [facility] office is Marisol Francis . Message forwarded to nurse for FYI onlyat this time. Message forwarded to nurse for follow up documented in this encounter Plan of Treatment Not on file documented as of this encounter Visit Diagnoses Not on filedocumented in this encounter Care Teams Technology Infusion Specialist Relationship Specialty Start Date End Date Dion Quezada MD PCP - General 12/12/10 10/06/16 Dilshad Costa MD PCP - General Pediatrics 10/07/16 12/29/18 Lucina Oglesby DO PCP - General Pediatrics 12/30/18 01/30/22 Tg Robison FNP [address] [place] [id number] PCP - General Pediatrics 01/31/22 07/14/23 Adriana Fernández MD [address] [place] [id number] PCP - General Internal Medicine 07/15/23 documented as of this encounter
--- OUTSIDE RECORDS SUMMARY | 2025-06-03 20:01 | XMS_ITS | Encounter Summary ---
Author Organization [facility] Address [address] [place] [address] Care Team Providers Care Edge Polisher Name Role Phone Dion Quezada MD Primary Care Provider Dilshad Chase MD Primary Care Provider Lucina Conklin DO Primary Care Provider Unav Tg Trujillo Primary Care Provider [phone] Adriana Fernández MD Primary Care Provider [phone] Reason for Visit * Reason Onset Date Comments [facility] 09/15/2016 Encounter Details Date Type Department Care Team Description 09/15/2016 Telephone Pediatrics - [address] [address] Dion Quezada MD [facility] Social History Tobacco Use Types Packs/Day Years Used Date Smoking Tobacco: Never Alcohol Use Standard Drinks/Week Comments Not Asked 0 (1 standard drink = 0.6 oz pur e alcohol) Sex Assigned at Date Recorded Not on file Job Start Date Occupation Industry Not on file Not on file Not on file documented as of this encounter Miscellaneous Notes * Telephone Encounter - Erin Reina L.P.N. - 09/15/2016 4:35 PM EST Left message to return call. * Telephone Encounter - Maria T Shree - 09/15/2016 2:54 PM EST Name and title of caller: Marisol from [facility] : 2005 Age: 10 yr. Is this an active 51A case: No. She just needs an update on her. Message forwarded to nurse for follow up documented in this encounter Plan of Treatment Not on file documented as of this encounter Visit Diagnoses Not on filedocumented in this encounter Care Teams Edge Polisher Relationship Specialty Start Date End Date Dion Quezada MD PCP - General 12/12/10 10/06/16 Dilshad Costa MD PCP - General Pediatrics 10/07/16 12/29/18 Lucina Oglesby DO PCP - General Pediatrics 12/30/18 01/30/22 Tg Robison FNP [address] [place] [phone] PCP - General Pediatrics 01/31/22 07/14/23 Adriana Fernández MD [address] [place] [phone] PCP - General Internal Medicine 07/15/23 documented as of this encounter
[2025-06-03 20:26] LABS: Appearance Urine Clear; Glucose Urine UA Negative (Negative); PH 6.5 (5.0-9.0); Specific Gravity - Urine 1.015 (1.005-1.025)
[2025-06-03 20:27] LABS: UPreg QC Valid YES
[2025-06-03 20:41] VITALS: BP 117/69; PULSE 68; RESP 20; TEMP 36.7; O2SAT 99
[2025-06-03 20:54] VITALS: BP 117/69; PULSE 68; RESP 20; TEMP 36.7; O2SAT 99
== END 2025-06-03 20:55 | disposition home or self-care (01) ==
PROVIDERS: Physician Assistant; Emergency Provider Emergency Medicine
DX: N76.0 Acute vaginitis (principal); Z20.2 Contact with and (suspected) exposure to infections with a predominantly sexual mode of transmission
CPT/HCPCS: 81003; 81025; 99283